=== PATIENT | female | born 1995 | race Caucasian/White ===

== ENCOUNTER 2016-08-03 15:17 | Emergency (ER) | payer OTHER ==
[~2016-08-03] VITALS: Ht 157.5 cm; Wt 80.6 kg
[~2016-08-03 15:17] MED LIST: PREN1TAB51 PO
[2016-08-03 15:28] VITALS: TEMP 37; Ht 157.5 cm; Wt 80.6 kg
--- NOTE | 2016-08-03 16:28 | EMERGENCY ROOM VISIT NOTE ---
History First contact with patient: 16:06 Chief Complaint: TACHYCARDIA Stated Complaint: HEART IS RACING-20 WKS. Nursing Triage Summary: pt reports tachycardia started 2 hours ago normally gets better on own not getting better. longest ever lasted. pt is 20 weeks . called bagger meat told to come to ed History of Present Illness The patient is a 21 year old female who presents to the Emergency Room via private vehicle with complaints of "heart is racing, 20 weeks ". Patient states she has a history of tachycardia. She states that earlier today , approximately 2 hours prior to arrival repeat was 146 bpm, and was not going away. She states that it briefly slow down to 128 and then back up to 142 bpm. She states then slow down again, she felt tired, lightheaded and developed some shortness of breath. She does have a history of tachycardia, was on atenolol for PVCs, and had an ablation performed by Dr. day in [place]. She follows with Dr. Brandt, and that she called their office earlier today who stated that she should come in for evaluation. She notes that the tachycardia develop she was sitting on the couch, and not with exertion or activity. She is concerned because she's not had a run of tachycardia for this duration of time. The patient states that she have a tachycardia before , but always stopped on its own. She feels the baby has been active as usual. She denies any abdominal pain, vaginal bleeding, cramping, vaginal discharge other than usual, nausea or vomiting. She is experiencing slight chest discomfort with the tachycardia. Review of Systems A complete 10-point Review of Systems was discussed with the patient, with pertinent positives and negatives listed in the History of Present Illness. All remaining Review of Systems questions can be considered negative unless otherwise specified. Past Medical/Surgical History Medical Problems: (1) ASTHMA, UNSPECIFIED (2) delivery delivered (3) DEPRESSIVE DISORDER NEC Family History Diabetes mellitus FH: cancer FH: heart disease FH: lung disease FHx: Crohn's disease Hypertension Social History Smoking Status: Never Smoker Alcohol Use: none Marital Status: in relationship Housing Status: lives with significant other Occupation Status: student Current/Historical Medications Scheduled Vit W/ Ferrous Fumara (Pnv Plus Multivi), 1 TAB PO DAILY Allergies Coded Allergies: No Known Allergies (Unverified , nka, 08/03/16) Physical Exam Vital Signs Date Time Temp Pulse Resp B/P Pulse Ox O2 Delivery O2 Flow Rate FiO2 08/03/16 17:54 78 18 111/67 100 08/03/16 17:53 78 20 111/67 100 Room Air 08/03/16 16:48 97 Room Air 08/03/16 16:47 97 Room Air 08/03/16 16:26 98 08/03/16 15:28 37.0 126 18 131/79 100 Room Air Physical Exam VITAL SIGNS - Vital signs and nursing notes were reviewed. Patient is afebrile , normotensive, tachycardic at a rate of 126 bpm, and is saturating well on room air 100%. Her respiratory rate is unlabored at 18. She communicates well with full sentences. GENERAL -21-year-old female appearing her stated age who is in no acute distress. Communicates well with provider and answers questions appropriately. SKIN - Without rashes. No petechial rashes. HEAD - NC/AT. EYES - PERRL with EOMI bilaterally. Sclera anicteric. Palpebral conjunctiva pink and moist with no injection noted. EARS - No deformities of external structures noted on gross examination bilaterally. No pain elicited with palpation of the tragus bilaterally. External auditory canals without discharge or otorrhea. Tympanic membranes pearly miguel without retraction or bulging. No fluid or purulent material visualized behind the TM. Handle of malleus, umbo, cone of light, pars tensa/ flaccid all easily visualized. NOSE - Midline and without cyanosis. No epistaxis or purulent drainage noted. Septum midline without deviation or septal hematoma noted. MOUTH/OROPHARYNX - Without perioral cyanosis. Buccal mucosa pink and moist and without leukoplakia. Tongue midline with equal elevation of palate bilaterally. No tonsillar hypertrophy, erythema, or exudates noted. Good dentition noted. NECK - Neck with FROM. Supple to palpation. No lymphadenopathy noted. No nuchal rigidity. LUNGS - Chest wall symmetric without accessory muscle use, intercostals retractions, or central cyanosis. Normal vesicular breath sounds CTA B/L. No wheezes, rales, or rhonchi appreciated. CARDIAC - RRR with S1/S2. No murmur, rubs, or gallops appreciated. ABDOMEN - Abdominal contour without pulsations or visible masses other than usual for gestation. BS normoactive all four quadrants. No tenderness, palpable masses, hepatosplenomegaly, or ascites noted. EXTREMITIES - No clubbing or peripheral cyanosis. No pretibial edema present. + 5/5 strength noted in UE/LE bilaterally. NEUROLOGIC - Cranial nerves II through XII grossly intact. Sensory intact to light touch throughout. PSYCH - A&Ox3 and cooperates fully with examiner. Pt is very pleasant and interacts well with examiner. Medical Decision & Procedures Laboratory Results 08/03/16 16:49 Red Blood Count 3.90, Mean Corpuscular Volume 87.7, Mean Corpuscular Hemoglobin 29.7, Mean Corpuscular Hemoglobin Concent 33.9, Mean Platelet Volume 10.1, Neutrophils (%) (Auto) 71.5, Lymphocytes (%) (Auto) 20.4, Monocytes (%) (Auto) 6.6, Eosinophils (%) (Auto) 0.9, Basophils (%) (Auto) 0.1, Neutrophils # (Auto) 7.40, Lymphocytes # (Auto) 2.11, Monocytes # (Auto) 0.68, Eosinophils # (Auto) 0.09, Basophils # (Auto) 0.01 08/03/16 16:49 Test 08/03/16 16:49 08/03/16 16:57 08/03/16 17:03 White Blood Count 10.34 K/uL (4.8-10.8) Red Blood Count 3.90 M/uL (4.2-5.4) Hemoglobin 11.6 g/dL (12.0-16.0) Hematocrit 34.2 % (37-47) Mean Corpuscular Volume 87.7 fL (80-100) Mean Corpuscular Hemoglobin 29.7 pg (25-34) Mean Corpuscular Hemoglobin Concent 33.9 g/dl (32-36) Platelet Count 259 K/uL (130-400) Mean Platelet Volume 10.1 fL (7.4-10.4) Neutrophils (%) (Auto) 71.5 % Lymphocytes (%) (Auto) 20.4 % Monocytes (%) (Auto) 6.6 % Eosinophils (%) (Auto) 0.9 % Basophils (%) (Auto) 0.1 % Neutrophils # (Auto) 7.40 K/uL (1.4-6.5) Lymphocytes # (Auto) 2.11 K/uL (1.2-3.4) Monocytes # (Auto) 0.68 K/uL (0.11-0.59) Eosinophils # (Auto) 0.09 K/uL (0-0.5) Basophils # (Auto) 0.01 K/uL (0-0.2) RDW Standard Deviation 44.4 fL (36.4-46.3) RDW Coefficient of Variation 14.1 % (11.5-14.5) Immature Granulocyte % (Auto) 0.5 % Immature Granulocyte # (Auto) 0.05 K/uL (0.00-0.02) Prothrombin Time 10.3 SECONDS (9.0-12.0) Prothromb Time International Ratio 1.0 (0.9-1.1) Activated Partial Thromboplast Time 25.4 SECONDS (21.0-31.0) Partial Thromboplastin Ratio 1.0 Anion Gap 10.0 mmol/L (3-11) Est Creatinine Clear Calc Drug Dose 159.2 ml/min Estimated GFR () > 150.0 Estimated GFR (Non- 134.1 BUN/Creatinine Ratio 11.9 (10-20) Calcium Level 8.7 mg/dl (8.5-10.1) Magnesium Level 1.8 mg/dl (1.8-2.4) Total Bilirubin 0.2 mg/dl (0.2-1) Aspartate Amino Transf (AST/SGOT) 8 U/L (15-37) Alanine Aminotransferase (ALT/SGPT) 13 U/L (12-78) Alkaline Phosphatase 91 U/L (45-117) Total Creatine Kinase 30 U/L (26-192) Creatine Kinase MB < 0.5 ng/ml (0.5-3.6) Creatine Kinase MB Ratio (0-3.0) Total Protein 6.5 gm/dl (6.4-8.2) Albumin 2.6 gm/dl (3.4-5.0) Globulin 3.9 gm/dl (2.5-4.0) Albumin/Globulin Ratio 0.7 (0.9-2) Thyroid Stimulating Hormone (TSH) 1.940 uIu/ml (0.300-4.500) Bedside Troponin I 0.000 ng/ml (0-0.045) Urine Color YELLOW Urine Appearance CLEAR (CLEAR) Urine pH 7.5 (4.5-7.5) Urine Specific [place] 1.009 (1.000-1.030) Urine Protein NEG (NEG) Urine Glucose (UA) 1+ (NEG) Urine Ketones NEG (NEG) Urine Occult Blood NEG (NEG) Urine Nitrite NEG (NEG) Urine Bilirubin NEG (NEG) Urine Urobilinogen NEG (NEG) Urine Leukocyte Esterase NEG (NEG) Medical Decision Patient was seen and evaluated as above. After obtaining a thorough history and physical examination the above workup was initiated. The patient upon presentation to the emergency department was tachycardic at a rate of 126 bpm. There was minimal chest discomfort. Stat EKG was obtained and revealed normal sinus rhythm, rate of 97 bpm. No ectopy or ischemic change was noted. When compared with previous EKG of 05/23/2016 PVCs are no longer present, and the ventricular rate has increased by 35 bpm. There is no evidence of further ectopy or ischemic change. Lab results reveal no leukocytosis, slight anemia noted. Coagulation studies were within normal limits. Creatinine was low at 0.55, no evidence of kidney failure or liver failure. TSH was within normal limits. Point care troponin was within normal limits. Urine was unremarkable, other than 1+ glucose. heart tones as performed by the nurse were within normal limits. Patient was educated upon these findings. She was reevaluated many times throughout her stay, and was noted to have a heart rate in the 70s and 80s. She appeared clinically well, and I discussed the potential chance for both pulmonary embolism, however I do not suspect such as her vital signs have returned normal, she is saturating well. They were educated upon different carin could be ordered to evaluate for this, however were cautioned based upon the adverse effects that may happen to the fetus. Through thorough decision-making with the patient and myself, it was decided to not pursue any workup for pulmonary embolism. I do believe this is reasonable. Patient appears stable, and is ready for discharge. She was instructed to follow-up with her family doctor and bagger meat regarding today's visit. She was educated upon worrisome symptoms in which to return, had questions answered prior to discharge, and was discharged home in good condition. In the evaluation and treatment of this patient the following differential diagnoses were entertained: Tachycardia, SVT, CO, PE, among others. The patient 's body appeared to self regulate, and has brought the ventricular rate to a normal rate. No medicinal intervention was necessary. Impression Primary Impression: Tachycardia Additional Impression: Anemia Departure Information Dispostion Home / Self-Care Condition GOOD Referrals Will Mckeon III, M.D. (PCP) Patient Instructions My [facility] Additional Instructions You were seen in the emergency department for tachycardia. EKG and cardiac chemicals were normal. As we discussed we have decided not to obtain a CT scan of your chest, we believe that the risk outweighs the benefit. Here in the emergency Department your heart rate returned to normal. It is recommended you have basic labs repeated with your family doctor. Please call your bagger meat, VENEER SUPERVISOR and family doctor first thing tomorrow morning to schedule follow-up and to let them know that you were seen in the emergency department. Please return to the emergency department with any return of these episodes, or new/concerning symptoms. Thank you for your time. Problem Qualifiers
[2016-08-03 16:48] VITALS: O2SAT 97
[2016-08-03 16:58] LABS: BASO % 0.1 %; BASO ABS # 0.01 K/uL (0-0.2); COMPLETE YES; EOS % 0.9 %; HEMATOCRIT 34.2 % (37-47); IG% 0.5 %; LYMPH % 20.4 %; LYMPH ABS # 2.11 K/uL (1.2-3.4); MEAN CELL VOLUME 87.7 fL (80-100); MEAN CORPUSCULAR HEMOGLOBIN 29.7 pg (25-34); MEAN CORPUSCULAR HGB CONC 33.9 g/dl (32-36); MEAN PLATELET VOLUME 10.1 fL (7.4-10.4); MONO % 6.6 %; NEUT % 71.5 %; PLATELET COUNT 259 K/uL (130-400); WHITE BLOOD COUNT 10.34 K/uL (4.8-10.8)
[2016-08-03 17:12] LABS: PROTHROMBIN TIME (PATIENT) 10.3 SECONDS (9.0-12.0)
[2016-08-03 17:13] LABS: CHLORIDE 106 mmol/L (98-107); POTASSIUM 3.9 mmol/L (3.5-5.1); SODIUM 139 mmol/L (136-145)
[2016-08-03 17:19] LABS: URINE APPEARANCE CLEAR (CLEAR); URINE BILIRUBIN NEG (NEG); URINE COLOR YELLOW; URINE NITRITE NEG (NEG); URINE PH 7.5 (4.5-7.5); URINE SPECIFIC GRAVITY 1.009 (1.000-1.030); UROBILINOGEN NEG (NEG); ZZUR CULT IF INDIC CLEAN CATCH NO
[2016-08-03 17:19] LABS: ALT/SGPT 13 U/L (12-78); AST/SGOT 8 U/L (15-37); BLOOD UREA NITROGEN 7 mg/dl (7-18); BUN/CREATININE RATIO 11.9 (10-20); CALCIUM 8.7 mg/dl (8.5-10.1); CARBON DIOXIDE 23 mmol/L (21-32); CREATININE 0.55 mg/dl (0.60-1.20); GLUCOSE 81 mg/dl (70-99); MAGNESIUM 1.8 mg/dl (1.8-2.4)
[2016-08-03 17:23] LABS: MANUAL MICROSCOPIC REQUIRED? NO; REVIEW REQ? NO
[2016-08-03 17:30] LABS: ALB/GLOB RATIO 0.7 (0.9-2); ALKALINE PHOSPHATASE 91 U/L (45-117)
[2016-08-03 17:54] VITALS: BP 111/67; PULSE 78; O2SAT 100
[2016-11-16] MEDS ORDERED: ZNTT/150 PO (18:52)
[2016-11-16] MEDS ORDERED: FERR1TAB23 PO (18:52)
[2016-11-26] MEDS ORDERED: OXYC-57 PO (21:31)
[2016-11-26] MEDS ORDERED: MTR600X PO (21:31)
[2016-11-27] MEDS ORDERED: ZVR400 PO (10:27)
== END 2016-08-03 17:57 | disposition home or self-care (01) ==
LOC: C.EDB 15:20 → C.EDC 17:57
DX: R00.0 Tachycardia, unspecified (principal); D64.9 Anemia, unspecified; J45.909 Unspecified asthma, uncomplicated; F32.9 Major depressive disorder, single episode, unspecified; Z83.3 Family history of diabetes mellitus; Z82.49 Family history of ischemic heart disease and other diseases of the circulatory system; Z83.6 Family history of other diseases of the respiratory system; Z83.79 Family history of other diseases of the digestive system; Z33.1 Pregnant state, incidental

== ENCOUNTER 2016-08-28 16:29 | Outpatient (CLI) | payer OTHER ==
[2016-11-16] MEDS ORDERED: FERR1TAB23 PO (18:52)
[2016-11-16] MEDS ORDERED: ZNTT/150 PO (18:52)
== END 2016-08-28 17:20 | disposition home or self-care (01) ==
LOC: C.LD 16:29 → C.OPB 16:29
PROVIDERS: ATTEND Obstetrics & Gynecology
DX: O36.8130 Decreased fetal movements, third trimester, not applicable or unspecified (principal); Z3A.24 24 weeks gestation of pregnancy

== ENCOUNTER 2016-09-20 21:48 | Outpatient (CLI) | payer OTHER ==
[~2016-09-20] VITALS: Ht 157.5 cm; Wt 85.0 kg
[2016-09-20 22:32] VITALS: Ht 157.5 cm; Wt 85.0 kg
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
--- NOTE | 2016-09-20 23:56 | Discharge Instructions ---
Discharge Instructions Date of Service Sep 20, 2016. Admission Reason for Admission: Abdominal Pain Discharge Discharge Diagnosis / Problem: Discharge Goals Goal(s): Continuing OB care Activity Recommendations Activity Limitations: as noted below ACTIVITY RECOMMENDATIONS: See Labor Sheet. SPECIAL CARE INSTRUCTIONS: Call Doctor if: * Regular contractions every 5 minutes or greater than contractions in one hour. * Bleeding * Water breaks or is leaking * Decreased movement * Fever >100.4 degrees F * Pain not relieved by routine measures or pain medication ordered. FOLLOW UP VISIT: Return to Labor and Delivery on for /call for appointment time . Follow-up Visit with: When: . Current Hospital Diet Patient's current hospital diet: Discharge Diet Recommended Diet: Regular Diet Pending Studies Studies pending at discharge: no Medical Emergencies . Who to Call and When: Medical Emergencies: If at any time you feel your situation is an emergency, please call 911 immediately. . Non-Emergent Contact Non-Emergency issues call your: Specialist . . "Provider Documentation" section prepared by Sergio Shook. VTE Core Measure Inpt VTE Proph given/why not?: Treatment not indicated
[2016-11-16] MEDS ORDERED: ZNTT/150 PO (18:52)
[2016-11-16] MEDS ORDERED: FERR1TAB23 PO (18:52)
[2016-11-26] MEDS ORDERED: OXYC-57 PO (21:31)
[2016-11-26] MEDS ORDERED: MTR600X PO (21:31)
[2016-11-27] MEDS ORDERED: ZVR400 PO (10:27)
== END 2016-09-21 00:04 | disposition home or self-care (01) ==
LOC: C.OPB 21:48 → C.LD 21:48 → C.OPB 09-21 00:04
PROVIDERS: ATTEND Obstetrics & Gynecology
DX: O99.89 Other specified diseases and conditions complicating pregnancy, childbirth and the puerperium (principal); R10.9 Unspecified abdominal pain; Z3A.27 27 weeks gestation of pregnancy; W51.XXXA Accidental striking against or bumped into by another person, initial encounter

== ENCOUNTER 2016-09-28 22:37 | Outpatient (CLI) | payer OTHER ==
[~2016-09-28] VITALS: Ht 157.5 cm; Wt 86.4 kg
--- NOTE | 2016-09-29 00:02 | Progress Note ---
Progress Note Date of Service Sep 28, 2016. Progress Note Pt is a 28 week gestation the Ff complaints. 1) Dec. FM, 2) Brownish tinge disch on wiping after urination. 3) Nausea she has Zofran but has not taking med today On arrival to L&D she began to experience increase mvt NST is CAT1 VE; close/no blood on exam glove Pt is disch home with instructions including taking her Zofran
--- NOTE | 2016-09-29 00:04 | Discharge Instructions ---
Discharge Instructions Date of Service Sep 29, 2016. Admission Reason for Admission: Bleeding, Decreased Movement Discharge Discharge Diagnosis / Problem: at 28 weeks Discharge Goals Goal(s): Continuing OB care Activity Recommendations Activity Limitations: as noted below ACTIVITY RECOMMENDATIONS: See Labor Sheet. SPECIAL CARE INSTRUCTIONS: Call Doctor if: * Regular contractions every 5 minutes or greater than contractions in one hour. * Bleeding * Water breaks or is leaking * Decreased movement * Fever >100.4 degrees F * Pain not relieved by routine measures or pain medication ordered. FOLLOW UP VISIT: Return to Labor and Delivery on for /call for appointment time . Follow-up Visit with: When: . Current Hospital Diet Patient's current hospital diet: Discharge Diet Recommended Diet: Regular Diet Pending Studies Studies pending at discharge: no Medical Emergencies . Who to Call and When: Medical Emergencies: If at any time you feel your situation is an emergency, please call 911 immediately. . Non-Emergent Contact Non-Emergency issues call your: Specialist . . "Provider Documentation" section prepared by Sergio Shook. . VTE Core Measure Inpt VTE Proph given/why not?: Treatment not indicated
[2016-09-29 00:49] VITALS: Ht 157.5 cm; Wt 86.4 kg
[2016-11-16] MEDS ORDERED: ZNTT/150 PO (18:52)
[2016-11-16] MEDS ORDERED: FERR1TAB23 PO (18:52)
[2016-11-26] MEDS ORDERED: OXYC-57 PO (21:31)
[2016-11-26] MEDS ORDERED: MTR600X PO (21:31)
[2016-11-27] MEDS ORDERED: ZVR400 PO (10:27)
== END 2016-09-28 23:45 | disposition home or self-care (01) ==
LOC: C.LD 22:37 → C.OPB 22:37
PROVIDERS: ATTEND Obstetrics & Gynecology
DX: O36.8130 Decreased fetal movements, third trimester, not applicable or unspecified (principal); Z3A.28 28 weeks gestation of pregnancy

== ENCOUNTER 2016-10-23 00:38 | Outpatient (CLI) | payer OTHER ==
[~2016-10-23] VITALS: Ht 157.5 cm; Wt 87.5 kg
[2016-10-23 01:42] VITALS: Ht 157.5 cm; Wt 87.5 kg
--- NOTE | 2016-10-26 10:54 | EDITING REQUIRED CODING QUERY ---
DIAGNOSIS NEEDED To promote full compliance with coding requirements relating to patient care, physician participation is requested in all cases of lang path therapist uncertainty. Please assist us with the question(s) below: Coding Question: The patient received care in labor and delivery on 10/23/16 as noted within the record. Please document the diagnosis that is being addressed by the medication/treatment. Provider Response: DIAGNOSIS: early labor Thank you for your assistance, Zahra Juarez - Firer [employer]
[2016-11-16] MEDS ORDERED: FERR1TAB23 PO (18:52)
[2016-11-16] MEDS ORDERED: ZNTT/150 PO (18:52)
[2016-11-26] MEDS ORDERED: OXYC-57 PO (21:31)
[2016-11-26] MEDS ORDERED: MTR600X PO (21:31)
[2016-11-27] MEDS ORDERED: ZVR400 PO (10:27)
== END 2016-10-23 01:59 | disposition home or self-care (01) ==
LOC: C.OPB 00:38 → C.LD 00:39 → C.OPB 01:59
PROVIDERS: ATTEND Obstetrics & Gynecology
DX: O60.03 Preterm labor without delivery, third trimester (principal); Z3A.32 32 weeks gestation of pregnancy

== ENCOUNTER 2016-11-21 03:16 | Outpatient (CLI) | payer OTHER ==
[~2016-11-21] VITALS: Ht 157.5 cm; Wt 90.7 kg
[~2016-11-21 03:16] MED LIST changes: +FERR1TAB23 PO; +ZNTT/150 PO
[2016-11-21 03:47] VITALS: Ht 157.5 cm; Wt 90.7 kg
[2016-11-21] MEDS ORDERED: LACTATED RINGER'S 1000ML 1,000 ML IV SCH (03:58)
[2016-11-21] MEDS ORDERED: LACTATED RINGER'S 1000ML 1,000 ML IV ONE (03:58)
[2016-11-21] MEDS ORDERED: BETAMETH SOD PHOS/ACETATE IA 6 MG/ML IM ONE (08:15)
--- NOTE | 2016-11-21 08:40 | Discharge Instructions ---
Discharge Instructions Date of Service Nov 21, 2016. Admission Reason for Admission: Check Labor Discharge Discharge Diagnosis / Problem: Cholestasis of , IUP 36.1 week Discharge Goals Goal(s): Continuing OB care Activity Recommendations Activity Limitations: per Instructions/Follow-up section . Instructions / Follow-Up Instructions / Follow-Up SPECIAL CARE INSTRUCTIONS: Call Doctor if: * Regular contractions every 5 minutes or greater * Bleeding * Water breaks or is leaking * Decreased movement * Fever >100.4 degrees F * Pain not relieved by routine measures or pain medication ordered. FOLLOW UP VISIT: [facility] Visit with:[facility] When:Tomorrow 11/21/16 0900 AM Current Hospital Diet Patient's current hospital diet: Regular OB Diet Discharge Diet Recommended Diet: Regular OB Diet Pending Studies Studies pending at discharge: no Medical Emergencies . Who to Call and When: Medical Emergencies: If at any time you feel your situation is an emergency, please call 911 immediately. . Non-Emergent Contact Non-Emergency issues call your: Primary Care Provider, Igniter Assembler . . "Provider Documentation" section prepared by Shine Dacosta. . VTE Core Measure Inpt VTE Proph given/why not?: Treatment not indicated
[2016-11-26] MEDS ORDERED: OXYC-57 PO (21:31)
[2016-11-26] MEDS ORDERED: MTR600X PO (21:31)
[2016-11-27] MEDS ORDERED: ZVR400 PO (10:27)
== END 2016-11-21 09:05 | disposition home or self-care (01) ==
LOC: C.OPB 03:16 → C.LD 03:16 → C.OPB 09:05
PROVIDERS: ATTEND Obstetrics & Gynecology
DX: O26.893 Other specified pregnancy related conditions, third trimester (principal); K83.1 Obstruction of bile duct; Z3A.36 36 weeks gestation of pregnancy

== ENCOUNTER 2016-11-24 06:56 | Inpatient (IN) | payer OTHER ==
[~2016-11-24] VITALS: Ht 157.5 cm; Wt 90.4 kg
[2016-11-24] VITALS (11 sets, daily range): BP systolic 106–118; BP diastolic 69–77; PULSE 58–71; TEMP 36.5–37; O2SAT 96–100; Ht 157.5 cm; Wt 90.4 kg
[~2016-11-24 06:56] MED LIST changes: +CEFAZOLIN IV 2,000 MG in DEXTROSE 5% 50ML IV SCH; +CITRIC ACID/SODIUM CITRATE 15 ML UDC PO SCH; +LACTATED RINGER'S 1000ML 1,000 ML IV SCH
--- NOTE | 2016-11-24 08:13 | History & Physical Bridge Note ---
H&P Re-Evaluation Bridge Note: I have examined the patient, reviewed the History & Physical and in the interval since the performance of the History & Physical I have noted the following changes of clinical significance: No changes noted
[2016-11-24 08:26] LABS: BASO % 0.2 %; BASO ABS # 0.02 K/uL (0-0.2); COMPLETE YES; EOS % 1.3 %; HEMATOCRIT 30.9 % (37-47); IG% 0.8 %; LYMPH % 32.2 %; LYMPH ABS # 2.82 K/uL (1.2-3.4); MEAN CELL VOLUME 80.3 fL (80-100); MEAN CORPUSCULAR HEMOGLOBIN 24.9 pg (25-34); MEAN CORPUSCULAR HGB CONC 31.1 g/dl (32-36); MEAN PLATELET VOLUME 10.2 fL (7.4-10.4); MONO % 10.8 %; NEUT % 54.7 %; PLATELET COUNT 258 K/uL (130-400); RED BLOOD COUNT 3.85 M/uL (4.2-5.4); WHITE BLOOD COUNT 8.76 K/uL (4.8-10.8)
[2016-11-24] MEDS ORDERED: OXYTOCIN INJ 10 UNITS/ML VIAL ONE (08:29)
[2016-11-24] MEDS ORDERED: MoRPHine SULFATE PF 1 MG/ML 10 ML AMP/VIAL ONE (08:29)
[2016-11-24] MEDS ORDERED: FENTANYL CITRATE INJ 50 MCG/1 ML 2 ML VIAL ONE (08:29)
[2016-11-24] MEDS: LACTATED RINGER'S 1000ML 1,000 ML IV SCH ×2 (09:00→09:03)
[2016-11-24] MEDS ORDERED: EpHEDrine SULFATE INJ 50 MG/ML AMP IV PRN ×2 (09:15→12:45)
[2016-11-24] MEDS ORDERED: ATROPINE SULFATE 0.1 MG/ML 5ML SYR IV PRN (09:15)
[2016-11-24] MEDS ORDERED: FENTANYL CITRATE INJ 50 MCG/1 ML 2 ML VIAL IV PRN (09:15)
[2016-11-24] MEDS ORDERED: ONDANSETRON INJ 2 MG/ML 2 ML VIAL IV PRN ×2 (09:15→12:45)
[2016-11-24] MEDS ORDERED: LACTATED RINGER'S 1000ML 1,000 ML IV SCH (11:09)
[2016-11-24] MEDS ORDERED: HYDROCORTISONE ACETATE 25 MG SUPP PR PRN (11:15)
[2016-11-24] MEDS ORDERED: BENZOCAINE 20% AER SPR 82.5 GM CAN EXT PRN (11:15)
[2016-11-24] MEDS ORDERED: SENNA 8.6 MG TAB PO PRN (11:15)
[2016-11-24] MEDS ORDERED: SUPERCREAM 0.870 % 15GM JAR EXT PRN (11:15)
[2016-11-24] MEDS ORDERED: MAGNESIUM HYDROXIDE SUSP 30 ML UDC PO PRN (11:15)
[2016-11-24] MEDS ORDERED: LANOLIN OINT EXT PRN ×2 (11:15)
[2016-11-24] MEDS ORDERED: DIPHTHERIA/TETANUS/PERTUSSIS 0.5 ML SYR/VIAL IM. ONE (11:15)
--- NOTE | 2016-11-24 11:16 | [facility] Post Operative Brief Note ---
Immediate Operative Summary Operative Date Nov 24, 2016. Pre-Operative Diagnosis INTRA-UTERINE AT 36.4 WEEKS. HISTORY OF CAESAREAN DELIVERY, REQUESTS REPEAT CAESAREAN SECTION AND DESIRES SURGICAL STERILIZATION. Post-Operative Diagnosis ABOVE Procedure(s) Performed REPEAT CAESAREAN SECTION - LOW TRANSVERSE INCISION BILATERAL TUBAL LIGATION Surgeon DR. WITT Pea Viner Mechanic Surgeon(s) DR. REDMAN Estimated Blood Loss 700 Findings Patient delivered a viable female in the vertex position via repeat section. APGARs and weight pending. Please see pediatricians notes for further baby assessment. Cord blood obtained and an intact placenta with a 3 VC delivered manually. Normal uterus and bilateral tubes and ovaries noted. Bilateral tubal ligation was performed via ajit technique. Bilateral tubal segments sent to pathology. Patient tolerated the surgery well and was sent to recovery with stable vital signs. Fluids (cc crystalloids) 1600 Specimens 1. PLACENTA (HOLD) 2. CORD BLOOD (HOLD) 3. SEGMENT OF R FALLOPIAN TUBE (To Pathology) 4. SEGMENT OF L FALLOPIAN TUBE (To Pathology) Drains Alfonso to gravity Anesthesia Spinal Complication(s) None Disposition L&D
--- NOTE | 2016-11-24 12:15 | OPERATIVE REPORT ---
DATE OF OPERATION: 11/24/2016 PREOPERATIVE DIAGNOSES: 1. Intrauterine at 36 weeks and 4 days gestation. 2. History of prior section, requesting repeat section. 3. Cholestasis of . 4. Requesting permanent sterilization. POSTOPERATIVE DIAGNOSES: Same. OPERATIVE PROCEDURE: Repeat low transverse section with bilateral tubal ligation. SURGEON: Dr. Shine Dacosta. INTELLIGENCE INTERN: Dr. Sewell. ANESTHESIA: Spinal. ESTIMATED BLOOD LOSS: 700 mL. IV FLUIDS: 1600 mL crystalloids. URINE OUTPUT: 200 mL clear yellow urine. SPECIMENS: Placenta, cord blood and left and right fallopian tube segments sent to pathology. DRAINS: Alfonso to gravity. COMPLICATIONS: None. DISPOSITION: To labor and delivery. OPERATIVE FINDINGS: The patient delivered a viable female infant in the vertex position via repeat section. Apgars and weight are pending. Please see track broom operator's notes for further baby assessment. Cord blood was obtained and intact placenta with a 3-vessel cord was delivered manually. Normal uterus and bilateral tubes and ovaries were noted. Bilateral tubal ligation was performed via Mansfield technique. Bilateral tubal segments sent to pathology. The patient tolerated the surgery well and was sent to recovery with stable vital signs. OPERATIVE PROCEDURE IN DETAIL: The patient was taken to the operating room, where spinal anesthesia was administered. The patient was immediately placed in the dorsal supine position with a left lateral tilt and was prepped and draped in a manner appropriate for the procedure. Once anesthesia was found to be adequate, a Pfannenstiel skin incision was made over the previous surgical scar and was carried down through to a layer of the rectus fascia. The fascia was nicked in the midline and extended bilaterally with curved Omalley scissors. The superior aspect of the fascial incision was grasped with Sunil clamps, elevated, and the rectus muscles were dissected off with the use of the electrocautery and curved Omalley scissors. Likewise, the inferior aspect of the fascial incision was grasped with Sunil clamps, elevated, and the rectus muscles were dissected off with the use of the curved Omalley scissors. The rectus muscles were in midline. Peritoneum was entered bluntly and extended cephalocaudally with gentle traction. Bladder blade was then placed within the abdomen. The vesicouterine peritoneum was identified and a bladder flap was created with Metzenbaum scissors and digital traction. The bladder flap was reincorporated beneath the Roly blade. A transverse incision was then made on the uterus and extended bilaterally with digital traction. The membranes were then ruptured noting meconium stained amniotic fluid. The baby's head was delivered through the incision along with the rest of the body was delivered. The baby was bulb suctioned. Cord was clamped x2 and cut. The baby was immediately handed to an awaiting track broom operator for further evaluation and management. Please see their notes for further baby assessment. Cord blood was then obtained and intact placenta with 3-vessel cord was delivered manually through the incision. The uterus was then exteriorized and wrapped in a moist laparotomy sponge. The uterus was cleared of any trailing membranes and debris with the laparotomy sponge. The uterine incision was then grasped with ring forceps at 4 quadrants and was closed with 0 Vicryl suture in continuous locking fashion. A second layer of 0 Vicryl suture was used in imbricating fashion to ensure hemostasis. Any residual bleeding was suture ligated with 0 Vicryl suture in a [id number] interrupted fashion. Excellent hemostasis was noted at the incision. Attention was then directed towards the right fallopian tube, which was followed out to its fimbriated end, grasped at the midpoint with the Court clamp and was suture ligated with 0 chromic suture in a Alejandrina technique fashion. The tubal segment was then removed with the Metzenbaum scissors. The tubal stumps were cauterized with electrocautery. The same was done on the left side. The left fallopian tube was followed out to its fimbriated end and grasped at that midpoint with the [place] clamp and was double suture ligated with 0 chromic suture via Alejandrina technique. Tubal segment was then removed with Metzenbaum scissors and sent to pathology. The tubal stumps were then cauterized. Excellent hemostasis was noted bilaterally. The uterus was then placed back within its normal anatomic position within the abdomen. Inspection of the incision was noted to be hemostatic. Bilateral tubal ligations were also hemostatic. The abdomen was then irrigated with warm saline solution. All instruments were then removed from the abdomen. The peritoneum was grasped with Brandy clamps and was closed with 2-0 Vicryl suture in continuous running fashion. Rectus muscles were reapproximated with 0 Vicryl suture in a [id number] interrupted fashion. Fascia was then closed with 0 Vicryl suture in continuous running fashion. The skin was then closed with sandeep. Excellent hemostasis was noted through all tissue layers. The patient tolerated the procedure well and was sent to recovery with stable vital signs. I attest to the content of the Intraoperative Record and any orders documented therein. Any exception s are noted below.
[2016-11-24] MEDS ORDERED: NALOXONE HCL INJ 0.08 MG in SYRINGE 1.8 ML IV PRN (12:33)
[2016-11-24] MEDS ORDERED: LACTATED RINGER'S 1000ML 500 ML IV PRN (12:33)
[2016-11-24] MEDS ORDERED: SODIUM CHLORIDE 0.9% 1000ML 1,000 ML IV PRN (12:33)
[2016-11-24] MEDS ORDERED: NALOXONE HCL INJ 1 MG in SODIUM CHLORIDE 0.9% 1000ML 1,000 ML IV PRN (12:33)
--- NOTE | 2016-11-24 12:35 | Anesthesiology Progress Note ---
Anesthesia Post Op Note Date & Time Nov 24, 2016 at 12:35 Notes Mental Status: alert / awake / arousable, participated in evaluation Pt Amnestic to Procedure: Yes Nausea / Vomiting: adequately controlled Pain: adequately controlled Airway Patency, RR, SpO2: stable & adequate BP & HR: stable & adequate Hydration State: stable & adequate Neuraxial Anesthesia: was administered, sensory block is resolving Anesthetic Complications: no major complications apparent
[2016-11-24] MEDS ORDERED: MEPERIDINE HCL 25 MG/ML CARP IV PRN (12:45)
[2016-11-24] MEDS ORDERED: MoRPHine SULFATE PF 1 MG/ML 10 ML AMP/VIAL EPI PRN (12:45)
[2016-11-24] MEDS ORDERED: DiphenhydrAMINE HCL 50 MG/ML VIAL IV PRN (12:45)
[2016-11-24] MEDS ORDERED: NALBUPHINE HCL INJ 10 MG/ML AMP IV PRN (12:45)
[2016-11-24] MEDS ORDERED: NO NARCOTICS OR SEDATIVES SCH (12:45)
[2016-11-24] MEDS ORDERED: NALOXONE HCL 0.4 MG/1 ML VIAL/CARP IV PRN (12:45)
[2016-11-24] MEDS: OXYTOCIN INJ 30 UNITS in LACTATED RINGER'S 1000ML 1,000 ML IV SCH ×2 (12:48→20:17)
[2016-11-24 12:54] LABS: HEMATOCRIT 30.7 % (37-47)
[2016-11-24] MEDS: KETOROLAC TROMETHAMINE 30 MG/ML VIAL IV. PRN ×2 (13:16→23:42)
[2016-11-24] MEDS: SIMETHICONE 80 MG CHEW PO SCH ×2 (17:48→20:03)
[2016-11-24] MEDS: DOCUSATE SODIUM 100 MG CAP PO SCH (20:03)
[2016-11-25] VITALS (8 sets, daily range): BP systolic 97–118; BP diastolic 60–74; PULSE 58–78; TEMP 36.3–37; O2SAT 95–98
[2016-11-25] MEDS ORDERED: ONDANSETRON INJ 2 MG/ML 2 ML VIAL IV PRN (04:00)
[2016-11-25] MEDS ORDERED: KETOROLAC TROMETHAMINE 30 MG/ML VIAL IV. PRN (04:00)
[2016-11-25] MEDS ORDERED: OXYCODONE/ACETAMINOPHEN 5-325 TAB PO PRN (04:00)
[2016-11-25] MEDS ORDERED: DC INTRASPINAL MORPHINE ONE (04:00)
[2016-11-25 06:40] LABS: BASO % 0.2 %; BASO ABS # 0.02 K/uL (0-0.2); COMPLETE YES; HEMATOCRIT 31.4 % (37-47); IG% 0.3 %; LYMPH % 16.8 %; LYMPH ABS # 1.93 K/uL (1.2-3.4); MEAN CELL VOLUME 78.7 fL (80-100); MEAN CORPUSCULAR HEMOGLOBIN 24.8 pg (25-34); MEAN CORPUSCULAR HGB CONC 31.5 g/dl (32-36); MONO % 10.1 %; NEUT % 71.6 %; PLATELET COUNT 225 K/uL (130-400); RED BLOOD COUNT 3.99 M/uL (4.2-5.4); WHITE BLOOD COUNT 11.52 K/uL (4.8-10.8)
[2016-11-25] MEDS: OXYCODONE/ACETAMINOPHEN 5-325 TAB PO PRN ×3 (07:13→20:41)
[2016-11-25] MEDS: IBUPROFEN 600 MG TAB PO PRN ×3 (07:13→20:40)
--- NOTE | 2016-11-25 08:35 | Anesthesiology Progress Note ---
Anesthesia Post Op Note Date & Time Nov 25, 2016 at 08:34 Vital Signs Pain Intensity: 6.0 Vital Signs Past 12 Hours Date Time Temp Pulse Resp B/P (MAP) Pulse Ox O2 Delivery O2 Flow Rate FiO2 11/25/16 07:15 98 Room Air 11/25/16 07:15 36.6 60 18 97/60 (72) 98 Room Air 11/25/16 04:40 18 96 11/25/16 04:40 36.9 78 16 101/64 (76) 96 Room Air 11/25/16 03:30 16 96 11/25/16 02:30 16 95 11/25/16 01:30 18 97 11/25/16 00:30 20 98 11/24/16 23:45 37.0 64 18 110/72 (85) 100 Room Air 11/24/16 23:45 18 100 11/24/16 23:45 100 Room Air 11/24/16 23:00 18 96 11/24/16 22:00 16 98 11/24/16 21:00 18 99 Notes Mental Status: alert / awake / arousable, participated in evaluation Pt Amnestic to Procedure: Yes Nausea / Vomiting: adequately controlled Pain: adequately controlled Airway Patency, RR, SpO2: stable & adequate BP & HR: stable & adequate Hydration State: stable & adequate Neuraxial Anesthesia: sensory block resolved Anesthetic Complications: no major complications apparent
[2016-11-25] MEDS: FERROUS SULFATE 325 MG TAB PO SCH (08:45)
[2016-11-25] MEDS: SIMETHICONE 80 MG CHEW PO SCH ×4 (08:45→20:40)
[2016-11-25] MEDS: PRENATAL VITAMIN TAB PO SCH (08:46)
[2016-11-25] MEDS: DOCUSATE SODIUM 100 MG CAP PO SCH ×2 (08:46→20:40)
--- NOTE | 2016-11-25 12:22 | OB/GYN Progress Note ---
PROJECT SCIENTIST Progress Note Date of Service: Nov 25, 2016. Patient is seen and examined. She feels well, no complaints. Pain is under control with oral meds. Ambulating without dizziness Voiding without difficulty Tolerating regular diet with out N&V Flatus neg BM neg Bleeding is minimal No fever/ chills/ CP/ SOB/ N&V/ Leg pain Breast and bottle feeding without problems Last 24 Hours Test 11/24/16 12:47 11/25/16 06:21 Hemoglobin 9.0 g/dL 9.9 g/dL Hematocrit 30.7 % 31.4 % White Blood Count 11.52 K/uL Red Blood Count 3.99 M/uL Mean Corpuscular Volume 78.7 fL Mean Corpuscular Hemoglobin 24.8 pg Mean Corpuscular Hemoglobin Concent 31.5 g/dl Platelet Count 225 K/uL Mean Platelet Volume 10.0 fL Neutrophils (%) (Auto) 71.6 % Lymphocytes (%) (Auto) 16.8 % Monocytes (%) (Auto) 10.1 % Eosinophils (%) (Auto) 1.0 % Basophils (%) (Auto) 0.2 % Neutrophils # (Auto) 8.26 K/uL Lymphocytes # (Auto) 1.93 K/uL Monocytes # (Auto) 1.16 K/uL Eosinophils # (Auto) 0.11 K/uL Basophils # (Auto) 0.02 K/uL RDW Standard Deviation 45.0 fL RDW Coefficient of Variation 15.5 % Immature Granulocyte % (Auto) 0.3 % Immature Granulocyte # (Auto) 0.04 K/uL PE: General: Alert, orientedx3, NAD CVS: S1S2 RRR Lungs; CTAB Abd: soft, NT, fundus firm, below Umbilicus Incision: Clean, dry, intact Perineum intact, Lochia rubra minimal Ext; NT, no edema AP: 21 yo s/p C Section, pod# 1 VSS Afebrile doing well Continue routine postop care Encourage ambulation, PO intake All questions were answered
[2016-11-25] MEDS ORDERED: BISACODYL 5 MG TABEC ONE (20:38)
[2016-11-25] MEDS ORDERED: BISACODYL 5 MG TABEC PO ONE (22:00)
[2016-11-26] MEDS: IBUPROFEN 600 MG TAB PO PRN ×5 (00:37→22:01)
[2016-11-26] MEDS: OXYCODONE/ACETAMINOPHEN 5-325 TAB PO PRN ×6 (00:38→22:01)
[2016-11-26 06:50] LABS: HEMATOCRIT 30.5 % (37-47)
[2016-11-26 07:10] VITALS: BP 126/81; PULSE 64; TEMP 36.8; O2SAT 97
[2016-11-26] MEDS: SIMETHICONE 80 MG CHEW PO SCH ×4 (08:00→20:40)
[2016-11-26] MEDS: PRENATAL VITAMIN TAB PO SCH (09:44)
[2016-11-26] MEDS: DOCUSATE SODIUM 100 MG CAP PO SCH ×2 (09:44→20:41)
[2016-11-26] MEDS: FERROUS SULFATE 325 MG TAB PO SCH (09:44)
[2016-11-26] MEDS ORDERED: BISACODYL 10 MG SUPP PR PRN (11:15)
[2016-11-26 15:50] VITALS: BP 116/74; PULSE 72; TEMP 36.9
[2016-11-26] MEDS ORDERED: OXYC-57 PO (21:31)
[2016-11-26] MEDS ORDERED: MTR600X PO (21:31)
[2016-11-26 23:00] VITALS: BP 115/74; PULSE 60; TEMP 36.8
[2016-11-27] MEDS ORDERED: OXYTOCIN INJ 30 UNITS in LACTATED RINGER'S 1000ML 1,000 ML IV PRN (02:45)
[2016-11-27] MEDS: OXYCODONE/ACETAMINOPHEN 5-325 TAB PO PRN ×2 (06:33→12:35)
[2016-11-27] MEDS: IBUPROFEN 600 MG TAB PO PRN ×2 (06:33→12:36)
[2016-11-27 07:20] VITALS: BP 107/68; PULSE 71; TEMP 36.5; O2SAT 97
[2016-11-27] MEDS: PRENATAL VITAMIN TAB PO SCH (08:50)
[2016-11-27] MEDS: FERROUS SULFATE 325 MG TAB PO SCH (08:50)
[2016-11-27] MEDS: SIMETHICONE 80 MG CHEW PO SCH ×2 (08:51→12:34)
[2016-11-27] MEDS ORDERED: ZVR400 PO (10:27)
--- NOTE | 2016-11-27 10:28 | Discharge Instructions ---
Discharge Instructions Date of Service Nov 27, 2016. Admission Reason for Admission: Previous Section, Desires Sterilization Discharge Discharge Diagnosis / Problem: s/p repeat section with bilateral tubal ligation Discharge Goals Goal(s): Routine recovery after Activity Recommendations Activity Limitations: per Instructions/Follow-up section . Instructions / Follow-Up Instructions / Follow-Up ACTIVITY RECOMMENDATIONS: * Gradual return to full activity over the next 2-3 weeks. * No lifting - nothing heavier than baby over the next 2-3 weeks. * Do not engage in vigorous exercise, sexual activity or sports until cleared by your physician. * Do not drive or operate any motorized equipment until cleared by your physician. * You may shower/bathe daily. BREAST CARE: If you are not breast feeding: * Wear a supportive bra 24 hours a day for one to two weeks. * Avoid stimulating your breasts and nipples as much as possible during the first few weeks after delivery. * When taking a shower, have the warm water hit your back, not breasts. * When your breasts feel full, apply ice packs. Usually three to four times a day helps ease the discomfort. * Take a mild pain medication (Tylenol/Motrin) when you are uncomfortable. If breast feeding: * Use breast milk to lubricate nipples. Lansinoh cream may be used for sore nipples. You do not need to remove cream prior to breast feeding. If using a different brand of cream, check the label for directions regarding removal of cream prior to nursing. * Wear a supportive bra. * If having problems with breasts or breast feeding, call a health and wellness sales consultant or your health care provider. OVER THE COUNTER MEDICATION: * For discomfort or pain, you may use Acetaminophen (Tylenol), Ibuprofen (Advil ), or Naproxen (Aleve) following the package directions. * For constipation you may use Colace following the package directions. SPECIAL CARE INSTRUCTIONS: When you are discharged from the hospital, it is important for you to follow the instructions listed below: * During the first week at home, you should be able to care for yourself and your baby. In addition, the usual light household activities are encouraged. * Limit your activities to the way you feel. Do not try to clean the house or move furniture. Be sensible. * If you actively engage in sports and have done so up until the time of your delivery, you may resume these activities as soon as you feel able. This may take up to one month or even longer. Use good judgment. * Continue to take your vitamins for at least six weeks after the of your baby. * Your diet need not be limited unless you were on a special diet before your delivery. Breast-feeding mothers need around 2500 calories per day and at least 64-80 ounces of fluid per day (8 to 10 glasses). * You should eat foods from the four major food groups. Crash diets or fad diets are to be avoided. Eating lean meats, fresh fruits and vegetables, low-fat dairy products, high fiber foods and a regular exercise program, will help you get back to your pre- weight without putting your health at risk. * Constipation is sometimes a problem after delivery. Take a mild laxative as needed. If breast feeding, Milk of Magnesia is acceptable to use. You may use a suppository or Fleets enema if no episiotomy. * A daily shower or tub bath is suggested. Be sure to thoroughly and gently dry the perineum. * A bloody vaginal discharge will usually continue until around four weeks post . A small amount of bleeding may continue for as long as six weeks. Vaginal discharge changes from the bright red bleeding after delivery to pink then brownish and finally yellowish-pink before becoming white and disappearing. * Bleeding may increase with activity. Your first period may come in 4-8 weeks. If you are breast feeding, your period may be delayed even longer. * [place] (sex) can begin whenever both you and your partner feel comfortable and do not have any form of genital infection. It is recommended that you wait at least six weeks for internal and external healing to occur. If you have questions, please talk to your health care practitioner. A condom should be used to prevent infection and . * Foreplay, gentle intercourse and lubrication is very important the first several times to prevent pain. A water-based lubricant such as K-Y jelly or Astroglide may be used. * Tampons and/or Douching should be avoided until after six weeks check-up. * If you have RH negative blood and your baby is RH positive, you will receive RHOGAM by injection prior to discharge. The nurse will give you a card to keep with you that has the date and place that you received RHOGAM after delivery. * During your care, you had a Rubella screen done to check for the presence of rubella antibodies in your blood. If your test was negative, you will receive a Rubella vaccine prior to discharge. This vaccine may cause a fever, soreness at the injection site and flu-like symptoms. If these symptoms persist, notify your health care practitioner. is not advised for three months after a Rubella vaccine. * Verbalizes understanding of car seat law as reviewed with patient nursing. * Car Seat hand-out given and reviewed with patient by nursing. * Shaken baby information reviewed with patient by nursing. Call you doctor if: * Heavy bleeding (saturating several pads an hour) or passing clots the size of your fist. * A fever >101 degrees F (38.3 degrees C) on two occasions four hours apart and /or chills. * Unusual pain in the pelvic or vaginal areas. Pain should improve each day . * Call the doctor for any increased redness, drainage or swelling around the incision and any pain unrelieved by prescribed pain medication. * Any signs or symptoms of phlebitis (possible blood clots forming in the veins ): leg pain, warm, red or swollen area on leg. * "Baby Blues" lasting longer than two weeks. If you have any questions or concerns, call your health care practitioner at . FOLLOW-UP VISIT: * Incision check (staple removal) in 1 week. Please call doctor's office at to set up appointment. * Please call the office at to schedule a 6 week examination. It is important you keep this appointment. * It is important for you to make arrangements for either yearly or twice yearly check-ups thereafter. Current Hospital Diet Patient's current hospital diet: Regular OB Diet Discharge Diet Recommended Diet: Regular OB Diet Procedures Procedures Performed: REPEAT [place] SECTION - LOW TRANSVERSE INCISION BILATERAL TUBAL LIGATION Pending Studies Studies pending at discharge: no Medical Emergencies . Who to Call and When: Medical Emergencies: If at any time you feel your situation is an emergency, please call 911 immediately. . Non-Emergent Contact Non-Emergency issues call your: Primary Care Provider, [facility] [employer] . . "Provider Documentation" section prepared by Shine Dacosta. . VTE Core Measure Inpt VTE Proph given/why not?: Treatment not indicated
--- NOTE | 2016-11-27 10:31 | OB/GYN Progress Note ---
LIVING MANAGER Progress Note Date of Service Nov 27, 2016. Subjective conversation w/ patient, physical exam Ambulation: ambulating normally Voiding: no voiding problems Passing Gas: Yes Diet Tolerance: Regular Diet Lochia: Small Pain: 08/19 Notes: Pain well controlled. Tolerating regular diet. Ambulating without difficulty. Lochia minimal. Objective Vital Signs Date Time Temp Pulse Resp B/P (MAP) Pulse Ox O2 Delivery O2 Flow Rate FiO2 11/27/16 07:45 Room Air 11/27/16 07:20 36.5 71 20 107/68 (81) 97 Room Air 11/26/16 23:00 Room Air 11/26/16 23:00 36.8 60 18 115/74 (88) Room Air 11/26/16 15:50 Room Air 11/26/16 15:50 36.9 72 20 116/74 (88) Room Air Physical Exam General Appearance: WELL-APPEARING Respiratory/Chest: chest non-tender, lungs clear Cardiovascular: regular rate, rhythm Abdomen: normal bowel sounds, soft Fundus: Firm Incision Description: Clean, Dry & Intact Extremities: normal range of motion, non-tender, no calf tenderness Assessment and Plan Post-Op Day Number: 3 Continue Routine Care: -D/C home today -F/U in 1 week for incision check.
[2016-11-27] MEDS: DOCUSATE SODIUM 100 MG CAP PO SCH (12:34)
[2016-11-27 13:38] VITALS: BP_DIAS 68; PULSE 71; TEMP 36.5
--- NOTE | 2016-12-08 19:44 | Discharge Summary ---
Discharge Summary Date of Service Dec 08, 2016. Discharge Summary Admission Date: Nov 24, 2016 at 06:56 Discharge Date: Nov 27, 2016 Discharge Disposition: Home Principal Diagnosis: IUP at 36.4 weeks, Cholestasis of , Hx prior C/S requesting repeat, requesting permanent sterilization Procedures: Repeat section with BTL Medication Reconciliation New Medications: Acyclovir (Acyclovir) 400 Mg Tab 400 MG PO TID for 7 Days, #21 Ibuprofen (Ibuprofen) 600 Mg Tab 600 MG PO Q4H PRN for Pain, THOMAS, Cramping, or Fever, #30 TAB Oxycodone/Acetaminophen 5MG/325MG (Percocet 5MG/325MG) Tab 1 TAB PO Q4H PRN for Pain - Pain Scale 1-5, #30 TAB PAIN Continued Medications: Ferrous Sulfate (Iron) 325 Mg Tab Vit W/ Ferrous Fumara (Pnv Plus Multivi) 1 Tab Tab 1 TAB PO DAILY Ranitidine (Zantac) 150 Mg Tab 150 MG PO DAILY, TAB Admission Information HPI (per Admitting provider): Patient is a 21 y/o @ 36.4 weeks was diagnosed with cholestasis of . M recommendations were to administer steroids x 2 and proceed with delivery. She has a history of a prior C/S and is requesting a repeat with bilateral tubal ligation. was uncomplicated otherwise. Physical Exam (per Admitting): General Appearance: WD/WN Respiratory/Chest: chest non-tender, lungs clear Cardiovascular: regular rate, rhythm Abdomen/GI: normal bowel sounds, soft Neurologic/Psych: alert, oriented x 3 Skin: normal color, warm/dry, no rash Hospital Course Patient underwent a repeat C/S with BTL on the morning of admission without complications. Her postop recovery was uneventful. On the morning of POD # 1 her oneil catheter was removed. Her diet and activity were advanced as tolerated. her pain was well controlled. She was discharged home on POD # 3 with discharge instructions. Total time spent on discharge = 20 mins This includes examination of the patient, discharge planning, medication reconciliation, and communication with other providers. Discharge Instructions ACTIVITY RECOMMENDATIONS: * Gradual return to full activity over the next 2-3 weeks. * No lifting - nothing heavier than baby over the next 2-3 weeks. * Do not engage in vigorous exercise, sexual activity or sports until cleared by your physician. * Do not drive or operate any motorized equipment until cleared by your physician. * You may shower/bathe daily. BREAST CARE: If you are not breast feeding: * Wear a supportive bra 24 hours a day for one to two weeks. * Avoid stimulating your breasts and nipples as much as possible during the first few weeks after delivery. * When taking a shower, have the warm water hit your back, not breasts. * When your breasts feel full, apply ice packs. Usually three to four times a day helps ease the discomfort. * Take a mild pain medication (Tylenol/Motrin) when you are uncomfortable. If breast feeding: * Use breast milk to lubricate nipples. Lansinoh cream may be used for sore nipples. You do not need to remove cream prior to breast feeding. If using a different brand of cream, check the label for directions regarding removal of cream prior to nursing. * Wear a supportive bra. * If having problems with breasts or breast feeding, call a custom decorating consultant or your health care provider. OVER THE COUNTER MEDICATION: * For discomfort or pain, you may use Acetaminophen (Tylenol), Ibuprofen (Advil ), or Naproxen (Aleve) following the package directions. * For constipation you may use Colace following the package directions. SPECIAL CARE INSTRUCTIONS: When you are discharged from the hospital, it is important for you to follow the instructions listed below: * During the first week at home, you should be able to care for yourself and your baby. In addition, the usual light household activities are encouraged. * Limit your activities to the way you feel. Do not try to clean the house or move furniture. Be sensible. * If you actively engage in sports and have done so up until the time of your delivery, you may resume these activities as soon as you feel able. This may take up to one month or even longer. Use good judgment. * Continue to take your vitamins for at least six weeks after the of your baby. * Your diet need not be limited unless you were on a special diet before your delivery. Breast-feeding mothers need around 2500 calories per day and at least 64-80 ounces of fluid per day (8 to 10 glasses). * You should eat foods from the four major food groups. Crash diets or fad diets are to be avoided. Eating lean meats, fresh fruits and vegetables, low-fat dairy products, high fiber foods and a regular exercise program, will help you get back to your pre- weight without putting your health at risk. * Constipation is sometimes a problem after delivery. Take a mild laxative as needed. If breast feeding, Milk of Magnesia is acceptable to use. You may use a suppository or Fleets enema if no episiotomy. * A daily shower or tub bath is suggested. Be sure to thoroughly and gently dry the perineum. * A bloody vaginal discharge will usually continue until around four weeks post . A small amount of bleeding may continue for as long as six weeks. Vaginal discharge changes from the bright red bleeding after delivery to pink then brownish and finally yellowish-pink before becoming white and disappearing. * Bleeding may increase with activity. Your first period may come in 4-8 weeks. If you are breast feeding, your period may be delayed even longer. * [place] (sex) can begin whenever both you and your partner feel comfortable and do not have any form of genital infection. It is recommended that you wait at least six weeks for internal and external healing to occur. If you have questions, please talk to your health care practitioner. A condom should be used to prevent infection and . * Foreplay, gentle intercourse and lubrication is very important the first several times to prevent pain. A water-based lubricant such as K-Y jelly or Astroglide may be used. * Tampons and/or Douching should be avoided until after six weeks check-up. * If you have RH negative blood and your baby is RH positive, you will receive RHOGAM by injection prior to discharge. The nurse will give you a card to keep with you that has the date and place that you received RHOGAM after delivery. * During your care, you had a Rubella screen done to check for the presence of rubella antibodies in your blood. If your test was negative, you will receive a Rubella vaccine prior to discharge. This vaccine may cause a fever, soreness at the injection site and flu-like symptoms. If these symptoms persist, notify your health care practitioner. is not advised for three months after a Rubella vaccine. * Verbalizes understanding of car seat law as reviewed with patient nursing. * Car Seat hand-out given and reviewed with patient by nursing. * Shaken baby information reviewed with patient by nursing. Call you doctor if: * Heavy bleeding (saturating several pads an hour) or passing clots the size of your fist. * A fever >101 degrees F (38.3 degrees C) on two occasions four hours apart and /or chills. * Unusual pain in the pelvic or vaginal areas. Pain should improve each day . * Call the doctor for any increased redness, drainage or swelling around the incision and any pain unrelieved by prescribed pain medication. * Any signs or symptoms of phlebitis (possible blood clots forming in the veins ): leg pain, warm, red or swollen area on leg. * "Baby Blues" lasting longer than two weeks. If you have any questions or concerns, call your health care practitioner at . FOLLOW-UP VISIT: * Incision check (staple removal) in 1 week. Please call doctor's office at to set up appointment. * Please call the office at to schedule a 6 week examination. It is important you keep this appointment. * It is important for you to make arrangements for either yearly or twice yearly check-ups thereafter.
== END 2016-11-27 13:50 | disposition home or self-care (01) | DRG 765 ==
LOC: C.LD 06:56 → EDSTATUS 11:13 → C.OBG 13:54
PROVIDERS: ADMIT Obstetrics & Gynecology; ATTEND Obstetrics & Gynecology
PROC: 0UB70ZZ Excision of Bilateral Fallopian Tubes, Open Approach (ICD-10-PCS; principal; 2016-11-24 09:00)
PROC: 10D00Z1 Extraction of Products of Conception, Low, Open Approach (ICD-10-PCS; principal; 2016-11-24 09:00)
DX: O34.211 Maternal care for low transverse scar from previous cesarean delivery (principal); K83.1 Obstruction of bile duct; O26.62 Liver and biliary tract disorders in childbirth; Z3A.36 36 weeks gestation of pregnancy; Z37.0 Single live birth

== ENCOUNTER 2017-01-30 16:56 | Emergency (ER) | payer OTHER ==
[~2017-01-30] VITALS: Ht 157.5 cm; Wt 78.7 kg
[~2017-01-30 16:56] MED LIST changes: -CEFAZOLIN IV 2,000 MG in DEXTROSE 5% 50ML IV SCH; -CITRIC ACID/SODIUM CITRATE 15 ML UDC PO SCH; -LACTATED RINGER'S 1000ML 1,000 ML IV SCH; +MTR600X PO; +OXYC-57 PO; +ZVR400 PO
[2017-01-30 17:04] VITALS: TEMP 36.6; Ht 157.5 cm; Wt 78.7 kg
[2017-01-30] MEDS ORDERED: SODIUM CHLORIDE 0.9% 1000ML 1,000 ML IV STA (18:21)
[2017-01-30] MEDS ORDERED: PRLSR20 PO (18:59)
[2017-01-30] MEDS ORDERED: DOCU-94 PO (19:00)
[2017-01-30 19:14] LABS: BASO % 0.4 %; BASO ABS # 0.03 K/uL (0-0.2); COMPLETE YES; EOS % 3.3 %; HEMATOCRIT 35.6 % (37-47); IG% 0.1 %; LYMPH % 29.4 %; LYMPH ABS # 2.13 K/uL (1.2-3.4); MEAN CELL VOLUME 79.5 fL (80-100); MEAN CORPUSCULAR HEMOGLOBIN 26.3 pg (25-34); MEAN CORPUSCULAR HGB CONC 33.1 g/dl (32-36); MEAN PLATELET VOLUME 9.7 fL (7.4-10.4); MONO % 8.3 %; NEUT % 58.5 %; PLATELET COUNT 270 K/uL (130-400); RED BLOOD COUNT 4.48 M/uL (4.2-5.4); WHITE BLOOD COUNT 7.24 K/uL (4.8-10.8)
[2017-01-30 19:23] LABS: URINE APPEARANCE CLEAR (CLEAR); URINE BILIRUBIN NEG (NEG); URINE COLOR YELLOW; URINE NITRITE NEG (NEG); URINE PH 8.5 (4.5-7.5); URINE SPECIFIC GRAVITY 1.021 (1.000-1.030); UROBILINOGEN NEG (NEG); ZZUR CULT IF INDIC CLEAN CATCH NO
[2017-01-30 19:24] LABS: PROTHROMBIN TIME (PATIENT) 10.7 SECONDS (9.0-12.0)
[2017-01-30 19:26] LABS: MANUAL MICROSCOPIC REQUIRED? NO; REVIEW REQ? NO
[2017-01-30 19:31] LABS: BUN/CREATININE RATIO 14.5 (10-20); CALCIUM 9.1 mg/dl (8.5-10.1); CREATININE 0.82 mg/dl (0.60-1.20); POTASSIUM 3.7 mmol/L (3.5-5.1)
[2017-01-30 19:41] LABS: THYROID STIMULATING HORMONE 1.14 uIu/ml (0.300-4.500)
--- NOTE | 2017-01-30 20:02 | DIAGNOSTIC IMAGING REPORT ---
PELVIC ULTRASOUND, TRANSABDOMINAL AND TRANSVAGINAL HISTORY: heavy vaginal bleeding, pelvic pain COMPARISON: Pelvic ultrasound 03/06/2013. FINDINGS: Uterus: 7.9 x 4.8 x 5.6 cm. The uterus is retroflexed. There are few small nabothian cysts. The uterus is heterogeneous. No definite masses. Trace fluid within the cervical canal. Endometrial stripe: 6 mm in thickness. Right ovary: Normal in size and demonstrates normal color flow. Left ovary: Normal in size and demonstrates normal color flow. Miscellaneous:No pelvic free fluid. IMPRESSION: 1. Normal endometrial stripe. 2. The uterus is slightly heterogeneous. However, there are no masses identified. 3. Trace fluid within the cervical canal. 4. Normal ovaries. Electronically signed by: Refugio Rubi M.D. 01/30/2017 8:01 PM Dictated Date/Time: 01/30/2017 7:57 PM
--- NOTE | 2017-01-30 20:26 | EMERGENCY ROOM VISIT NOTE ---
History First contact with patient: 17:53 Chief Complaint: VAGINAL BLEEDING Stated Complaint: BLEEDING ALOT History of Present Illness The patient is a 22 year old female who presents to the Emergency Room with complaints of heavy vaginal bleeding. The patient states that she had a C- section 2 months ago. She had normal bleeding afterward, but states this is her first period since then. She began having heavy vaginal bleeding 4 days ago. She states the bleeding gradually worsened and a few days ago, she was needing to change her tampon and pad every few hours. She states the bleeding stopped last night, but returned this morning. She called her [facility]' s office and they told her to come here for evaluation. She denies any history of abnormal vaginal bleeding. She denies any history of bleeding disorders. She reports some mild pelvic cramping and rates it 6/10. She denies any dizziness, lightheadedness or syncope. She has an appointment set up with her [facility] in 2 days. Review of Systems A complete 10 point review of systems was reviewed with the patient with pertinent positives and negatives as per history of present illness. All else were negative. Past Medical/Surgical History Medical Problems: (1) Abdominal trauma (2) ASTHMA, UNSPECIFIED (3) delivery delivered (4) Decreased movement (5) DEPRESSIVE DISORDER NEC Family History Diabetes mellitus FH: cancer FH: heart disease FH: lung disease FHx: Crohn's disease Hypertension Social History Smoking Status: Never Smoker Alcohol Use: none Marital Status: in relationship Housing Status: lives with significant other Occupation Status: student Current/Historical Medications Scheduled Docusate Sodium (Colace), 100 MG PO DAILY Ferrous Sulfate (Iron), 325 MG PO DAILY Omeprazole (Prilosec), 20 MG PO DAILY Vit W/ Ferrous Fumara (Pnv Plus Multivi), 1 TAB PO DAILY Physical Exam Vital Signs Date Time Temp Pulse Resp B/P (MAP) Pulse Ox O2 Delivery O2 Flow Rate FiO2 01/30/17 20:33 57 18 119/65 99 01/30/17 19:04 84 18 112/70 98 Room Air 01/30/17 17:04 36.6 96 18 125/85 100 Room Air Physical Exam VITALS: Vitals are noted on the nurse's note and reviewed by myself. Vital signs stable. GENERAL: This is a 22-year-old female, in no acute distress, nondiaphoretic, well-developed well-nourished. SKIN: Capillary reflex less than 2 seconds. HEENT: Normocephalic. PERRLA. Mucous membranes moist. Neck is supple without nuchal rigidity. HEART: Regular rate and rhythm without murmurs gallops or rubs. LUNGS: Clear to auscultation bilaterally without wheezes, rales or rhonchi. ABDOMEN: Positive bowel sounds x 4. Soft, mild tenderness to palpation across the lower abdomen. NEURO: Patient was alert and oriented to person place and time. Medical Decision & Procedures ER Provider Diagnostic Interpretation: PELVIC ULTRASOUND, TRANSABDOMINAL AND TRANSVAGINAL HISTORY: heavy vaginal bleeding, pelvic pain COMPARISON: Pelvic ultrasound 03/06/2013. FINDINGS: Uterus: 7.9 x 4.8 x 5.6 cm. The uterus is retroflexed. There are few small nabothian cysts. The uterus is heterogeneous. No definite masses. Trace fluid within the cervical canal. Endometrial stripe: 6 mm in thickness. Right ovary: Normal in size and demonstrates normal color flow. Left ovary: Normal in size and demonstrates normal color flow. Miscellaneous:No pelvic free fluid. IMPRESSION: 1. Normal endometrial stripe. 2. The uterus is slightly heterogeneous. However, there are no masses identified. 3. Trace fluid within the cervical canal. 4. Normal ovaries. Laboratory Results 01/30/17 18:55 Red Blood Count 4.48, Mean Corpuscular Volume 79.5, Mean Corpuscular Hemoglobin 26.3, Mean Corpuscular Hemoglobin Concent 33.1, Mean Platelet Volume 9.7, Neutrophils (%) (Auto) 58.5, Lymphocytes (%) (Auto) 29.4, Monocytes (%) (Auto) 8.3, Eosinophils (%) (Auto) 3.3, Basophils (%) (Auto) 0.4, Neutrophils # (Auto) 4.23, Lymphocytes # (Auto) 2.13, Monocytes # (Auto) 0.60, Eosinophils # (Auto) 0.24, Basophils # (Auto) 0.03 01/30/17 18:55 Test 01/30/17 18:55 01/30/17 19:00 White Blood Count 7.24 K/uL (4.8-10.8) Red Blood Count 4.48 M/uL (4.2-5.4) Hemoglobin 11.8 g/dL (12.0-16.0) Hematocrit 35.6 % (37-47) Mean Corpuscular Volume 79.5 fL (80-100) Mean Corpuscular Hemoglobin 26.3 pg (25-34) Mean Corpuscular Hemoglobin Concent 33.1 g/dl (32-36) Platelet Count 270 K/uL (130-400) Mean Platelet Volume 9.7 fL (7.4-10.4) Neutrophils (%) (Auto) 58.5 % Lymphocytes (%) (Auto) 29.4 % Monocytes (%) (Auto) 8.3 % Eosinophils (%) (Auto) 3.3 % Basophils (%) (Auto) 0.4 % Neutrophils # (Auto) 4.23 K/uL (1.4-6.5) Lymphocytes # (Auto) 2.13 K/uL (1.2-3.4) Monocytes # (Auto) 0.60 K/uL (0.11-0.59) Eosinophils # (Auto) 0.24 K/uL (0-0.5) Basophils # (Auto) 0.03 K/uL (0-0.2) RDW Standard Deviation 52.0 fL (36.4-46.3) RDW Coefficient of Variation 17.7 % (11.5-14.5) Immature Granulocyte % (Auto) 0.1 % Immature Granulocyte # (Auto) 0.01 K/uL (0.00-0.02) Prothrombin Time 10.7 SECONDS (9.0-12.0) Prothromb Time International Ratio 1.0 (0.9-1.1) Activated Partial Thromboplast Time 26.8 SECONDS (21.0-31.0) Partial Thromboplastin Ratio 1.0 Anion Gap 6.0 mmol/L (3-11) Est Creatinine Clear Calc Drug Dose 104.6 ml/min Estimated GFR () 117.7 Estimated GFR (Non- 101.6 BUN/Creatinine Ratio 14.5 (10-20) Calcium Level 9.1 mg/dl (8.5-10.1) Total Bilirubin 0.2 mg/dl (0.2-1) Aspartate Amino Transf (AST/SGOT) 15 U/L (15-37) Alanine Aminotransferase (ALT/SGPT) 21 U/L (12-78) Alkaline Phosphatase 109 U/L (45-117) Total Protein 7.1 gm/dl (6.4-8.2) Albumin 3.5 gm/dl (3.4-5.0) Globulin 3.6 gm/dl (2.5-4.0) Albumin/Globulin Ratio 1.0 (0.9-2) Thyroid Stimulating Hormone (TSH) 1.140 uIu/ml (0.300-4.500) Urine Color YELLOW Urine Appearance CLEAR (CLEAR) Urine pH 8.5 (4.5-7.5) Urine Specific [place] 1.021 (1.000-1.030) Urine Protein NEG (NEG) Urine Glucose (UA) NEG (NEG) Urine Ketones NEG (NEG) Urine Occult Blood 3+ (NEG) Urine Nitrite NEG (NEG) Urine Bilirubin NEG (NEG) Urine Urobilinogen NEG (NEG) Urine Leukocyte Esterase TRACE (NEG) Urine WBC (Auto) 1-5 /hpf (0-5) Urine RBC (Auto) >30 /hpf (0-4) Urine Hyaline Casts (Auto) 1-5 /lpf (0-5) Urine Epithelial Cells (Auto) 10-20 /lpf (0-5) Urine Bacteria (Auto) NEG (NEG) Urine Test NEG (NEG) Medications Administered Medications (Trade) Dose Ordered Sig/[place] Route Start Time Stop Time Status Last Admin Dose Admin Sodium Chloride 1,000 ml @ 999 mls/hr Q1H1M STAT IV 01/30/17 18:21 01/30/17 19:21 DC 01/30/17 19:05 999 MLS/HR ED Course The patient was evaluated as above. Labs were drawn and IV access was obtained. Pelvic ultrasound was performed and read by radiology as above. Patient was reevaluated and findings were discussed. Discharge instructions were reviewed with the patient. The patient verbalized understanding of my assessment and treatment plan and was discharged home in good condition. Medical Decision Differential diagnosis includes anemia, abnormal vaginal bleeding, uterine abnormality, miscarriage, among others. The patient is a 22-year-old female who presents today complaining of heavy vaginal bleeding. The patient is 2 months . This is her first period since the delivery. Labs revealed a very mild leukocytosis of 11.8. Patient does report a history of anemia and this seems to be stable for her. Labs were otherwise unremarkable. Pelvic ultrasound was unremarkable. Vital signs are within normal limits. The patient has an appointment set up with OB/ [facility] in 2 days. She was encouraged to keep this appointment for follow-up. She was encouraged to return here for any signs of worsening anemia or new/ concerning symptoms. Based on the patient's presentation and work up, I feel the patient is stable for outpatient treatment. The patient was educated to return to the emergency department for any worsening of their current condition or new/concerning symptoms. She will follow up with [facility]. Medication Reconcilliation Current Medication List: was personally reviewed by me Blood Pressure Screening Patient's blood pressure: Normal blood pressure Impression Primary Impression: Vaginal bleeding Departure Information Dispostion Home / Self-Care Condition GOOD Referrals Will Mckeon III, M.D. (PCP) Patient Instructions My [facility] Additional Instructions Follow-up with [facility] as scheduled. For pain control, you can use the following [id number] medicines (if >12 yo): - Regular strength (325mg/tab) Tylenol (acetaminophen) 2 tabs every 4-6 hours as needed. Do not exceed 12 tablets in a 24 hour period. Avoid taking more than 4 grams (4000 mg) of Tylenol per day. This includes any other sources of acetaminophen you may take on a regular basis. - Regular strength (200 mg/tab) Advil (ibuprofen) 1-2 tabs every 4-6 hours as needed. Do not exceed a dose of 3200 mg per day. Rest as much as possible, no strenuous activity for 48 hours. Follow-up with [facility] as scheduled on Monday. Return to the emergency department with worsening bleeding, worsening pain, vomiting, fevers or any other new/concerning symptoms.
[2017-01-30 20:33] VITALS: BP 119/65; PULSE 57; O2SAT 99
== END 2017-01-30 20:35 | disposition home or self-care (01) ==
LOC: C.EDB 16:57 → C.EDC 20:35
DX: N93.8 Other specified abnormal uterine and vaginal bleeding (principal); F32.9 Major depressive disorder, single episode, unspecified; J45.909 Unspecified asthma, uncomplicated; Z79.899 Other long term (current) drug therapy; Z83.3 Family history of diabetes mellitus; Z80.9 Family history of malignant neoplasm, unspecified; Z82.49 Family history of ischemic heart disease and other diseases of the circulatory system

== ENCOUNTER 2020-03-21 18:04 | Inpatient (IN) ==
[2020-03-21] MEDS ORDERED: KETOROLAC 30 MG/ML VIAL IV ONE (18:34)
--- NOTE | 2020-03-21 18:39 | Emergency Department Note ---
History of Present Illness General Chief complaint: Flank Pain Stated complaint: FLANK PAIN Time Seen by Provider: 03/21/20 18:15 History of Present Illness Maximum Pain Intensity: 7 This patient is a 25-year-old female who presents ambulatory to the emergency department for evaluation of a sharp, shooting pain into the right abdomen that started this morning. The pain is been constant, and worse with movement. She tried Tylenol 3 with no improvement of the pain. She denies any nausea or vomiting. No urinary symptoms. She is uncertain of her last menstrual period. Bowel movements have been normal. No fever. Home Medications Home Medications Medication Instructions Recorded Confirmed Type Cholestyramine Light 4 g PO QPM 02/06/20 03/21/20 History famotidine 40 mg PO HS 02/06/20 03/21/20 History omeprazole 40 mg PO QAM 02/06/20 03/21/20 History ibuprofen 600 mg PO TID PRN 03/04/20 03/21/20 History acetaminophen-codeine 1 tab PO UD PRN 03/21/20 03/21/20 History [Tylenol-Codeine #3] Allergies Allergy/AdvReac Type Severity Reaction Status Date / Time No Known Allergies Allergy Verified 03/21/20 21:09 Past Med/Surg History Medical History Asthma hx, no inhaler GERD (gastroesophageal reflux disease) occasional Obesity PVC (premature ventricular contraction) hx, no recent issues, NSR without arrhythmia on 09/2019 EKG Surgical History History of cardiac radiofrequency ablation approximately 2016 History of section X2 History of cholecystectomy History of colonoscopy History of esophagogastroduodenoscopy (EGD) History of tonsillectomy History of tooth extraction WTE Family History Grandmother (Maternal) Family history of diabetes mellitus Family hx of colon cancer Father Family history of diabetes mellitus Social History Smoking Status: Never smoker Tobacco Type: Cigarettes Cigarettes Per Day: 10 CIGS A DAY (intermittent x few years); Second Hand Exposure: No; Hx Alcohol Use: No Hx Substance Use: No Preferred Language: Hungarian Communication Ability: Effective Threader Operator Required: No Beliefs That Will Affect Care: None marital status: Current Living Situation: Spouse and Family current occupational status: unemployed Feels Safe at Home: Yes Assistive Devices: Glasses Review of Systems A total of 10 systems reviewed and were otherwise negative Physical Exam Vital Signs Vital Signs - 24 hr 03/21/20 18:10 03/21/20 20:04 Temperature 37.2 C Temperature Source Oral Pulse Rate 105 H Respiratory Rate 20 Blood Pressure 125/84 Blood Pressure [Left Arm] 142/91 H Blood Pressure Mean 97 Blood Pressure Mean [Left Arm] 108 Pulse Oximetry 98 Oxygen Delivery Method Room Air Sepsis Recent Fever Within 48 Hours No Sepsis New/Unexplained Change in Mental Status No Sepsis Action Taken by Nursing No Action Required Constitutional WD/WN, vitals as above Eyes EOM intact bilaterally ENMT external ear and nose normal, oropharynx normal Neck trachea midline Respiratory normal respiratory effort, lungs clear to auscultation Cardiovascular RRR, no murmur, no edema Gastrointestinal (Abdomen) Tenderness palpation in the right upper quadrant. No guarding or rebound tender ness. Bowel sounds present in all 4 quadrants. Mild right-sided CVA tenderness noted Musculoskeletal no cyanosis or clubbing, extremities motor strength 5/5 Skin no rashes, warm and dry Neurologic Alert and oriented x3. No focal motor deficits. Psychiatric Acting appropriately Course Course Patient was seen and examined Vital signs including blood pressure were reviewed medications list was verified with patient Labs were obtained, and a saline lock was established Upon reevaluation, the patient was resting comfortably. We discussed her results. She voiced understanding, and was comfortable with the disposition. Hospitalist service was consulted. They agreed to evaluate the patient for likely inpatient management. Consultations Consultation #1: Dr. Pendleton Administered Medications Heparin Sodium/Dextrose (Heparin Sodium/Dextrose) 25,000 units in 500 mls @ 22 mls/hr IV .[id number] [facility]; Protocol Stop: 04/20/20 21:59 Last Admin: 03/21/20 23:35 Dose: 1,100 units/hr, 22 mls/hr Documented by: [id number] Cosigned by: [id number] Discontinued Medications Heparin Sodium/Dextrose (Heparin Iv Standard With Bolus) 1 ea IV Q15M [facility]; Protocol Stop: 03/22/20 02:00 Last Admin: 10/10/20 23:13 Dose: Not Given Documented by: [id number] Heparin Sodium (Porcine) 5,000 (units/ Syringe) 5 mls @ 10 mls/min IV NOW ONE Stop: 03/21/20 22:46 Last Admin: 03/21/20 23:36 Dose: 10 mls/min Documented by: [id number] Cosigned by: [id number] Ioversol (Optiray 320 125ml) 80 ml IV ONCE ONE Stop: 03/21/20 19:28 Last Admin: 03/21/20 19:28 Dose: 80 ml Documented by: [id number] Ketorolac Tromethamine (Ketorolac 30 Mg/Ml Vial) 30 mg IV NOW ONE Stop: 03/21/20 18:35 Last Admin: 03/21/20 18:55 Dose: 30 mg Documented by: [id number] Potassium Chloride (Potassium Chloride 20 Meq Tabcr) 20 meq PO NOW STA Stop: 03/21/20 21:25 Last Admin: 03/21/20 21:45 Dose: 20 meq Documented by: [id number] Medical Decision Making Medical Records Attestation: I reviewed the patient's medical records. Home Medications Current Medication List: was personally reviewed by me Laboratory Data Attestation: I reviewed the patient's lab results. Result diagrams: 03/21/20 18:48 03/21/20 18:48 Lab Results 03/21/20 03/21/20 03/21/20 Range/Units 18:48 18:48 18:48 WBC 7.21 (4.8-10.8) K/uL RBC 4.21 (4.2-5.4) M/uL Hgb 12.5 (12.0-16.0) g/dL Hct 36.7 L (37-47) % MCV 87.2 (80-100) fL MCH 29.7 (25-34) pg MCHC 34.1 (32-36) g/dL RDW Std Deviation 44.3 (36.4-46.3) fL RDW Coeff of Fritz 13.8 (11.5-14.5) % Plt Count 298 (130-400) K/uL MPV 9.4 (7.4-10.4) fL Immature Gran % (Auto) 0.3 % Neut % (Auto) 57.3 % Lymph % (Auto) 30.8 % Clarke % (Auto) 10.4 % Eos % (Auto) 1.1 % Baso % (Auto) 0.1 % Neut # (Auto) 4.13 (1.4-6.5) K/uL Lymph # (Auto) 2.22 (1.2-3.4) K/uL Clarke # (Auto) 0.75 H (0.11-0.59) K/uL Eos # (Auto) 0.08 (0-0.5) K/uL Baso # (Auto) 0.01 (0-0.2) K/uL Immature Gran # (Auto) 0.02 (0.00-0.02) K/uL PT (9.0-12.0) Seconds INR (0.9-1.1) APTT (21.0-31.0) Seconds PTT Ratio D-Dimer 690 H* (0-500) ug/L FEU Sodium 137 (136-145) mmol/L Potassium 3.4 L (3.5-5.1) mmol/L Chloride 107 (98-107) mmol/L Carbon Dioxide 26 (21-32) mmol/L Anion Gap 4.0 (3-11) BUN 7 (7-18) mg/dl Creatinine 0.70 (0.6-1.2) mg/dl Est Cr Clr Drug Dosing 121.2 ml/min Est GFR ( Amer) 139.6 Est GFR (Non-Af Amer) 120.4 BUN/Creatinine Ratio 9.5 L (10-20) Glucose 84 (70-99) mg/dl Calcium 8.7 (8.5-10.1) mg/dl Total Bilirubin 1.1 H (0.2-1) mg/dl AST 422 H (15-37) U/L ALT 284 H (12-78) U/L Alkaline Phosphatase 212 H (45-117) U/L Total Protein 7.0 (6.4-8.2) gm/dl Albumin 3.5 (3.4-5.0) gm/dl Globulin 3.5 (2.5-4.0) gm/dl Albumin/Globulin Ratio 1.0 (0.9-2) Urine Color Urine Appearance (Clear) Urine pH (4.5-7.5) Ur Specific [place] (1.000-1.030) Urine Protein (Negative) Urine Glucose (UA) (Negative) Urine Ketones (Negative) Urine Blood (Negative) Urine Nitrite (Negative) Urine Bilirubin (Negative) Urine Urobilinogen (Negative) Ur Leukocyte Esterase (Negative) Urine WBC (Auto) (0-5) /hpf Urine RBC (Auto) (0-4) /hpf U Hyaline Cast (Auto) (0-5) /lpf U Epithel Cells (Auto) (0-5) /lpf Urine Bacteria (Auto) (Negative) Urine Test (Negative) 03/21/20 03/21/20 03/21/20 Range/Units 18:48 18:48 20:05 WBC (4.8-10.8) K/uL RBC (4.2-5.4) M/uL Hgb (12.0-16.0) g/dL Hct (37-47) % MCV (80-100) fL MCH (25-34) pg MCHC (32-36) g/dL RDW Std Deviation (36.4-46.3) fL RDW Coeff of Fritz (11.5-14.5) % Plt Count (130-400) K/uL MPV (7.4-10.4) fL Immature Gran % (Auto) % Neut % (Auto) % Lymph % (Auto) % Clarke % (Auto) % Eos % (Auto) % Baso % (Auto) % Neut # (Auto) (1.4-6.5) K/uL Lymph # (Auto) (1.2-3.4) K/uL [place] # (Auto) (0.11-0.59) K/uL Eos # (Auto) (0-0.5) K/uL Baso # (Auto) (0-0.2) K/uL Immature Gran # (Auto) (0.00-0.02) K/uL PT 11.0 (9.0-12.0) Seconds INR 1.0 (0.9-1.1) APTT 29.4 (21.0-31.0) Seconds PTT Ratio 1.1 D-Dimer (0-500) ug/L FEU Sodium (136-145) mmol/L Potassium (3.5-5.1) mmol/L Chloride (98-107) mmol/L Carbon Dioxide (21-32) mmol/L Anion Gap (3-11) BUN (7-18) mg/dl Creatinine (0.6-1.2) mg/dl Est Cr Clr Drug Dosing ml/min Est GFR ( Amer) Est GFR (Non-Af Amer) BUN/Creatinine Ratio (10-20) Glucose (70-99) mg/dl Calcium (8.5-10.1) mg/dl Total Bilirubin (0.2-1) mg/dl AST (15-37) U/L ALT (12-78) U/L Alkaline Phosphatase (45-117) U/L Total Protein (6.4-8.2) gm/dl Albumin (3.4-5.0) gm/dl Globulin (2.5-4.0) gm/dl Albumin/Globulin Ratio (0.9-2) Urine Color Yellow Urine Appearance Clear (Clear) Urine pH 6.0 (4.5-7.5) Ur Specific [place] 1.005 (1.000-1.030) Urine Protein Negative (Negative) Urine Glucose (UA) Negative (Negative) Urine Ketones Negative (Negative) Urine Blood 1+ H (Negative) Urine Nitrite Negative (Negative) Urine Bilirubin Negative (Negative) Urine Urobilinogen Negative (Negative) Ur Leukocyte Esterase Negative (Negative) Urine WBC (Auto) 1-5 (0-5) /hpf Urine RBC (Auto) 0-4 (0-4) /hpf U Hyaline Cast (Auto) 0 (0-5) /lpf U Epithel Cells (Auto) 5-10 H (0-5) /lpf Urine Bacteria (Auto) Negative (Negative) Urine Test Negative (Negative) Imaging Data Attestation: I personally reviewed and interpreted this imaging study as follows: Radiologist's Impression: CT abdomen and pelvis w/o contrast IMPRESSION: 1. Right lower lobe pulmonary infarct. Right lower lobe pulmonary emboli depicted on the chest CT. Please see that report for further description. Trace right pleural effusion. 2. No urinary calculi or hydronephrosis. 3. No acute process within the abdomen or pelvis on unenhanced exam. 4. No evidence for acute appendicitis. No bowel obstruction. ACT 112: Negative or not required by law. Electronically signed by: Malcolm Stanley M.D. 03/21/2020 7:47 PM Dictated: 03/21/201942 Transcribed: 03/21/201942 CTA chest IMPRESSION: 1. Several segmental and subsegmental pulmonary emboli within the right lower lobe with resultant 4.1 cm right lower lobe pulmonary infarct. 2. 5 mm right lower lobe nodule. This is likely benign. A follow-up chest CT in 6 months to ensure stability is recommended. ACT 112: Negative or not required by law. Electronically signed by: Malcolm Stanley M.D. 03/21/2020 7:43 PM Dictated: 03/21/201937 Transcribed: 03/21/201937 MDM Narrative Differential diagnosis: Ureteral stone, ovarian cyst, uterine fibroids, ectopic , Endometriosis, retained stone, pulmonary embolus, among others were entertained This patient is a 25-year-old female that presents the emergency department complaining of right lower chest/right upper abdominal pain that started this morning. On exam, her vital signs were stable. She was mildly tachycardic. There is no leukocytosis. Her LFTs are elevated. She denies any significant alcohol use. Her d-dimer was also elevated. Given her history of recent surgery and the fact that the patient smokes 1/2 pack of cigarettes per day, we proceeded with a CT. This is consistent with multiple pulmonary emboli and a pulmonary infarct. This likely explains her pain. Given the extent of the pulmonary emboli and the infarct, I do not feel comfortable sending the patient home. [facility] and would likely evaluate the patient for inpatient management. Impression & Plan Pulmonary embolism Discharge Plan Visit Data Chief Complaint: Flank Pain Stated Complaint: FLANK PAIN ED Provider: Andrews [facility] ED Midlevel Provider: Sulma Jarvis Discharge Problem: Pulmonary embolism Patient Disposition: Admitted As Inpatient Condition: Fair Discharge Instructions Interventions: ED Discharge Assessment Last Done: 03/21/20 22:25
[2020-03-21 19:03] LABS: Basophils # (auto) 0.01 K/uL (0-0.2); Basophils % (auto) 0.1 %; Eosinophils # (auto) 0.08 K/uL (0-0.5); Eosinophils % (auto) 1.1 %; Hematocrit (blood only) 36.7 % (37-47); Hemoglobin 12.5 g/dL (12.0-16.0); Immature Granulocytes # (auto) 0.02 K/uL (0.00-0.02); Immature Granulocytes % (auto) 0.3 %; Lymphocytes # (auto) 2.22 K/uL (1.2-3.4); Lymphocytes % (auto) 30.8 %; Mean Corpuscular Hemoglobin 29.7 pg (25-34); Mean Corpuscular Hgb Conc 34.1 g/dL (32-36); Mean Corpuscular Volume 87.2 fL (80-100); Mean Platelet Volume 9.4 fL (7.4-10.4); Monocytes # (auto) 0.75 K/uL (0.11-0.59); Monocytes % (auto) 10.4 %; Neutrophils # (auto) 4.13 K/uL (1.4-6.5); Neutrophils % (auto) 57.3 %; Platelet Count 298 K/uL (130-400); RDW Coefficient of Variation 13.8 % (11.5-14.5); RDW Standard Deviation 44.3 fL (36.4-46.3); Red Blood Count 4.21 M/uL (4.2-5.4); White Blood Count 7.21 K/uL (4.8-10.8)
[2020-03-21 19:04] LABS: Pregnancy Test, Urine Negative (Negative)
[2020-03-21 19:06] LABS: Appearance Urine Clear (Clear); Bilirubin Urine Negative (Negative); Blood Urine 1+ (Negative); Color Urine Yellow; Glucose Urine UA Negative (Negative); Ketones Urine Negative (Negative); Leukocyte Esterase Urine Negative (Negative); Nitrite Urine Negative (Negative); Protein Urine Negative (Negative); Specific Gravity Urine 1.005 (1.000-1.030); Urobilinogen Urine Negative (Negative)
[2020-03-21 19:17] LABS: D Dimer 690 ug/L FEU (0-500)
[2020-03-21 19:25] LABS: Albumin Level 3.5 gm/dl (3.4-5.0); BUN Creatinine Ratio 9.5 (10-20); Calcium 8.7 mg/dl (8.5-10.1); Creatinine Clr Calc Pharmacy 121.2 ml/min; Est GFR (African American) 139.6; Est GFR (Non-African American) 120.4; Potassium 3.4 mmol/L (3.5-5.1)
[2020-03-21] MEDS ORDERED: OPTIRAY 320 125ml IV ONE (19:27)
[2020-03-21 19:28] LABS: Bilirubin,Total 1.1 mg/dl (0.2-1); Globulin 3.5 gm/dl (2.5-4.0)
--- NOTE | 2020-03-21 19:44 | CT Scan Report ---
CT ANGIOGRAPHY OF THE CHEST, PULMONARY EMBOLUS PROTOCOL CLINICAL HISTORY: Elevated d-dimer right-sided upper abdominal pain COMPARISON STUDY: Chest radiograph September 15, 2019. TECHNIQUE: Following IV administration of 80 mL of Optiray-320, helical axial images of the chest wer e obtained utilizing the pulmonary embolus protocol. Maximal intensity projections and sagittal and coronal reformats were viewed on an independent 3D workstation. IV contrast was administered without complication. Automated exposure control was utilized for the study. A dose lowering technique was utilized adhering to the principles of ALARA. CT DOSE: 357.96 mGy.cm FINDINGS: Note is made of several segmental and subsegmental pulmonary emboli within the right lower lobe. This results in a 4.1 cm right lower lobe pulmonary infarct. No central pulmonary embolus is p resent. There is no CT evidence for right heart strain. There is no thoracic lymphadenopathy. No thor acic aortic dissection is noted. A 5 mm right lower lobe nodule on image 117 of 248 is noted. The abd omen and pelvis will be reported separately. There is a trace right pleural effusion. The caliber of the thoracic aorta is normal. IMPRESSION: 1. Several segmental and subsegmental pulmonary emboli within the right lower lobe with resultant 4.1 cm right lower lobe pulmonary infarct. 2. 5 mm right lower lobe nodule. This is likely benign. A follow-up chest CT in [address] ability is recommended. ACT 112: Negative or not required by law. Electronically signed by: Malcolm Stanley M.D. 03/21/2020 7:43 PM
--- NOTE | 2020-03-21 19:48 | CT Scan Report ---
CT OF THE ABDOMEN AND PELVIS WITHOUT CONTRAST CLINICAL HISTORY: Right flank pain COMPARISON STUDY: CT of the abdomen and pelvis December 15, 2019. TECHNIQUE: Axial images of the abdomen and pelvis were obtained without IV contrast. Images were revi ewed in the axial, sagittal, and coronal planes. Automated exposure control was utilized for the walker dy. A dose lowering technique was utilized adhering to the principles of ALARA. FINDINGS: Please note that the chest CT will be reported separately. This demonstrates a a few right lower lobe pulmonary emboli with resultant right lower lobe pulmonary infarct. No renal, ureteral or bladder calculi are present. There is no hydronephrosis or hydroureter. Evaluation of the remainder o f the abdomen and pelvis is suboptimal on this unenhanced examination. There is no biliary ductal dil atation status post cholecystectomy. The spleen, adrenal adrenal glands and pancreas are unremarkable . There is no evidence for a bowel obstruction. There is no evidence for acute appendicitis. Trace fl uid within the pelvis is likely physiologic. No suspicious osseous lesions are noted. IMPRESSION: 1. Right lower lobe pulmonary infarct. Right lower lobe pulmonary emboli depicted on the chest CT. Pl ease see that report for further description. Trace right pleural effusion. 2. No urinary calculi or hydronephrosis. 3. No acute process within the abdomen or pelvis on unenhanced exam. 4. No evidence for acute appendicitis. No bowel obstruction. ACT 112: Negative or not required by law. Electronically signed by: Malcolm Stanley M.D. 03/21/2020 7:47 PM
[2020-03-21 19:54] LABS: Cast Urine Automated 0 /lpf (0-5); RBC Urine Automated 0-4 /hpf (0-4)
[2020-03-21 19:55] LABS: Bacteria Urine Automated Negative (Negative)
[2020-03-21] MEDS ORDERED: NITROGLYCERIN SL 0.4 MG/TAB TAB SL PRN (21:17)
[2020-03-21] MEDS ORDERED: MAGNESIUM HYDROXIDE SUSP 30 ML UDC PO PRN (21:17)
[2020-03-21] MEDS ORDERED: ONDANSETRON INJ 2 MG/ML 2 ML VIAL IV PRN (21:17)
[2020-03-21] MEDS ORDERED: ALUMINUM/MAGNESIUM SUSP 30 ML UDC PO PRN (21:17)
[2020-03-21] MEDS ORDERED: POLYETHYLENE (MIRALAX) 17 GM PACK PO PRN (21:17)
--- NOTE | 2020-03-21 21:17 | History & Physical Report ---
Date of Service March 21, 2020 Assessment & Plan (1) Pulmonary embolism and infarction: Presented with right flank pain, elevated d-dimer, CT chest with contrast shows . Several segmental and subsegmental pulmonary emboli within the right lower lobe with resultant 4.1 cm right lower lobe pulmonary infarct. Ordered for hypercoagulable work-up, will start patient with IV heparin weight-based protocol, Patient will need 6-9 months of anticoagulation, can be started on DOAC's ( eliquis ) liver function improves Check echo for right heart strain Monitoring telemetry for evaluation of any arrhythmia Incidental finding of lung nodule 5 mm right lower lobe nodule. This is likely benign . A follow-up chest CT in 6 months to ensure stability is recommended. Tobacco abuse disorder: Smokes half a pack per cigarettes a day, counseling provided of risk of blood clot with ongoing smoking Patient is currently not on any oral contraceptive pills (2) Elevated liver enzymes: CT of abdomen pelvis does not show any hepatobiliary abnormality Patient is status post cholecystectomy Repeat comprehensive metabolic panel in a.m. hepatitis panel-ordered (3) Hypokalemia: Replaced, she denies of any nausea vomiting or diarrhea repeat BMP CODE STATUS: Full code DVT prophylaxis: Heparin therapeutic dose Disposition: Expected to be discharged home when medically stable Patient will benefit with hematology follow-up on discharge History of Present Illness Chief Complaint: Pain on right flank, and right side of the chest Primary Care Provider: Will Mckeon MD This is a 25-year-old female with no significant past medical history, presented to ER with complaint of severe sharp pain on her right lower back and right side of the chest, worse with taking deep breath No fever or chills, no cough, no blood in sputum Reports of dyspnea on exertion, pleuritic chest pain Patient denies of any dizzy spell palpitation, CT chest with contrast shows improved segmental and subtle segmental right-sided pulmonary embolism, causing pulmonary infarction Allergies Allergy/AdvReac Type Severity Reaction Status Date / Time No Known Allergies Allergy Verified 03/21/20 21:09 Home Medications Home Medications Medication Instructions Recorded Confirmed Type Cholestyramine Light 4 g PO QPM 02/06/20 03/21/20 History famotidine 40 mg PO HS 02/06/20 03/21/20 History omeprazole 40 mg PO QAM 02/06/20 03/21/20 History ibuprofen 600 mg PO TID PRN 03/04/20 03/21/20 History acetaminophen-codeine 1 tab PO UD PRN 03/21/20 03/21/20 History [Tylenol-Codeine #3] Past Med/Surg History Medical History Asthma hx, no inhaler GERD (gastroesophageal reflux disease) occasional Obesity PVC (premature ventricular contraction) hx, no recent issues, NSR without arrhythmia on 09/2019 EKG Surgical History History of cardiac radiofrequency ablation approximately 2016 History of section X2 History of cholecystectomy History of colonoscopy History of esophagogastroduodenoscopy (EGD) History of tonsillectomy History of tooth extraction WTE Family History Grandmother (Maternal) Family history of diabetes mellitus Family hx of colon cancer Father Family history of diabetes mellitus Social History Smoking Status: Never smoker Tobacco Type: Cigarettes Cigarettes Per Day: 10 CIGS A DAY (intermittent x few years); Second Hand Exposure: No; Hx Alcohol Use: No Hx Substance Use: No Preferred Language: Croatian Communication Ability: Effective Mouthpiece Maker Required: No Beliefs That Will Affect Care: None marital status: Current Living Situation: Spouse and Family current occupational status: unemployed Feels Safe at Home: Yes Assistive Devices: Glasses Review of Systems Review of Systems: All systems reviewed & are unremarkable except as noted in HPI & below Respiratory: + dyspnea Cardiovascular: + chest pain Physical Exam Constitutional: WD/WN, vitals as above Eyes: PERRL, conjunctivae normal, anicteric sclerae ENMT: external ear and nose normal, oropharynx normal Neck: trachea midline, no thyromegaly Respiratory: normal respiratory effort, lungs clear to auscultation Cardiovascular: RRR, no murmur, no edema Gastrointestinal (Abdomen): normal bowel sounds, soft, nontender, no hepatosplenomegaly Musculoskeletal: no cyanosis or clubbing, extremities motor strength 5/5 Skin: no rashes, warm and dry Neurologic: PERRL, EOMI, accommodation nl, no face palsy, no dysarthria Psychiatric: A+Ox3, euthymic affect Results & Data Results & Data ([place]) Vital Signs (Past 12 Hours) Vital Signs Temp Pulse Resp BP BP Pulse Ox 03/21/20 20:04 142/91 H 03/21/20 18:10 37.2 C 105 H 20 125/[address] chest with contrast: IMPRESSION: 1. Several segmental and subsegmental pulmonary emboli within the right lower lobe with resultant 4.1 cm right lower lobe pulmonary infarct. 2. 5 mm right lower lobe nodule. This is likely benign. A follow-up chest CT in 6 months to ensure stability is recommended.
[2020-03-21] MEDS ORDERED: POTASSIUM CHLORIDE CRTAB 20 MEQ TABCR PO STA (21:24)
[2020-03-21 21:28] LABS: Partial Thromboplastin Ratio 1.1; Partial Thromboplastin Time 29.4 Seconds (21.0-31.0)
[2020-03-21] MEDS ORDERED: HEPARIN IV BOLUS 5,000 UNITS in SYRINGE 0 ML IV ONE (22:45)
[2020-03-21] MEDS ORDERED: MoRPHine SULFATE 2 MG/ML CARP IV PRN (23:05)
[2020-03-21] MEDS: HEPARIN SODIUM/DEXTROSE 25,000 UNITS/500 ML BAG IV SCH (23:35)
[2020-03-22] MEDS: NICOTINE 21 MG/24 HR TDSY TD SCH (01:06)
[2020-03-22] MEDS ORDERED: KETOROLAC TROMETHAMINE 15 MG/ML VIAL IV ONE (05:00)
[2020-03-22] MEDS ORDERED: NORMOSOL-R 1,000 ML IV ONE (05:02)
[2020-03-22] MEDS: oxyCODONE HCL IR 5 MG TAB (IMMEDIATE RELEASE) PO PRN ×4 (05:39→21:11)
[2020-03-22 06:24] LABS: Basophils # (auto) 0.02 K/uL (0-0.2); Basophils % (auto) 0.3 %; Eosinophils # (auto) 0.22 K/uL (0-0.5); Eosinophils % (auto) 3.1 %; Hematocrit (blood only) 32.5 % (37-47); Hemoglobin 10.5 g/dL (12.0-16.0); Immature Granulocytes # (auto) 0.01 K/uL (0.00-0.02); Immature Granulocytes % (auto) 0.1 %; Lymphocytes # (auto) 2.67 K/uL (1.2-3.4); Lymphocytes % (auto) 37.7 %; Mean Corpuscular Hemoglobin 28.3 pg (25-34); Mean Corpuscular Hgb Conc 32.3 g/dL (32-36); Mean Corpuscular Volume 87.6 fL (80-100); Mean Platelet Volume 9.2 fL (7.4-10.4); Monocytes # (auto) 0.65 K/uL (0.11-0.59); Monocytes % (auto) 9.2 %; Neutrophils # (auto) 3.52 K/uL (1.4-6.5); Neutrophils % (auto) 49.6 %; Platelet Count 244 K/uL (130-400); Red Blood Count 3.71 M/uL (4.2-5.4); White Blood Count 7.09 K/uL (4.8-10.8)
[2020-03-22] MEDS: LIDOCAINE 5% 1 PATCH TD SCH (06:26)
[2020-03-22 06:45] LABS: Partial Thromboplastin Ratio 2.2
[2020-03-22 06:52] LABS: BUN Creatinine Ratio 11.6 (10-20); Calcium 8.4 mg/dl (8.5-10.1); Creatinine Clr Calc Pharmacy 137.1 ml/min; Magnesium 2.1 mg/dl (1.8-2.4); Potassium 3.8 mmol/L (3.5-5.1)
[2020-03-22 07:06] LABS: Partial Thromboplastin Time 62.6 Seconds (21.0-31.0)
[2020-03-22] MEDS: PANTOprazole 40 MG TAB PO SCH (08:28)
--- NOTE | 2020-03-22 08:53 | Ultrasound Report ---
BILATERAL LOWER EXTREMITY VENOUS DOPPLER CLINICAL HISTORY: bilateral PE eval for DVT COMPARISON STUDY: No previous studies for comparison. TECHNIQUE: Sonography of the deep venous system of the bilateral lower extremities was performed. Co mpression and augmentation were evaluated. FINDINGS: The bilateral common femoral, superficial femoral and popliteal veins were compressible. A ugmentation was normal. Flow was shown within the deep calf vessels. IMPRESSION: No evidence of deep venous thrombus within the bilateral lower extremities. ACT 112: Negative or not required by law. Electronically signed by: Malcolm Stanley M.D. 03/22/2020 8:51 AM
--- NOTE | 2020-03-22 12:25 | Electrocardiogram Report ---
Test Reason : Blood Pressure : / mmHG Vent. Rate : 064 BPM Atrial Rate : 064 BPM P-R Int : 174 ms QRS Dur : 082 ms QT Int : 450 ms P-R-T Axes : 050 058 053 degrees QTc Int : 464 ms Normal sinus rhythm with sinus arrhythmia Normal ECG When compared with ECG of 04-MAR-2020 14:35, Vent. rate has decreased BY 33 BPM Confirmed by Dangelo Dorman ([id number]) on 03/22/2020 12:25:18 PM Referred By: REFERRED SELF Confirmed By:Dangelo Dorman
[2020-03-22 14:11] LABS: Hematocrit (blood only) 34.3 % (37-47); Hemoglobin 11.5 g/dL (12.0-16.0)
--- NOTE | 2020-03-22 14:13 | XRay Report ---
SINGLE VIEW CHEST CLINICAL HISTORY: Pulmonary emboli. FINDINGS: An AP, portable, upright chest radiograph is compared to study dated 09/15/2019 and correlate d with chest CT dated 03/21/2020. The cardiomediastinal silhouette is unremarkable. Dependent airspac e opacities likely represent atelectasis. No large pleural effusion or pneumothorax is seen. The bony thorax is grossly intact. IMPRESSION: Dependent airspace opacities likely represent atelectasis. ACT 112: Negative or not required by law. Electronically signed by: Sekou Ruelas M.D. 03/22/2020 2:12 PM
[2020-03-22 14:28] LABS: Albumin Level 3.1 gm/dl (3.4-5.0); BUN Creatinine Ratio 7.6 (10-20); Est GFR (African American) 105.8; Est GFR (Non-African American) 91.3; Potassium 3.6 mmol/L (3.5-5.1)
[2020-03-22 14:33] LABS: Albumin Globulin Ratio 0.9 (0.9-2); Bilirubin,Total 0.4 mg/dl (0.2-1); Globulin 3.5 gm/dl (2.5-4.0); Total Protein 6.6 gm/dl (6.4-8.2)
[2020-03-22] MEDS: MoRPHine SULFATE 4 MG/ML 1 ML CARP\\VIAL IV PRN (16:12)
[2020-03-22] MEDS ORDERED: Nursing to Pharmacy Communication SCH (17:00)
[2020-03-22] MEDS: diphenhydrAMINE Capsule 25 MG CAP PO PRN (18:02)
[2020-03-22] MEDS: FAMOTIDINE 40 MG TABLET PO SCH (21:05)
[2020-03-22] MEDS: CHOLESTYRAMINE LIGHT 4 GM PKT PO SCH (21:05)
[2020-03-22] MEDS: HEPARIN SODIUM/DEXTROSE 25,000 UNITS/500 ML BAG IV SCH (21:09)
[2020-03-23 06:51] LABS: Hematocrit (blood only) 34.5 % (37-47); Hemoglobin 11.7 g/dL (12.0-16.0); Mean Corpuscular Hemoglobin 29.5 pg (25-34); Mean Corpuscular Hgb Conc 33.9 g/dL (32-36); Mean Corpuscular Volume 87.1 fL (80-100); Mean Platelet Volume 10.1 fL (7.4-10.4); Platelet Count 253 K/uL (130-400); RDW Coefficient of Variation 13.9 % (11.5-14.5); RDW Standard Deviation 44.7 fL (36.4-46.3); Red Blood Count 3.96 M/uL (4.2-5.4); White Blood Count 7.34 K/uL (4.8-10.8)
[2020-03-23 07:11] LABS: Partial Thromboplastin Ratio 1.4; Partial Thromboplastin Time 40.1 Seconds (21.0-31.0)
[2020-03-23 07:26] LABS: Albumin Level 3.1 gm/dl (3.4-5.0); BUN Creatinine Ratio 9.2 (10-20); Calcium 9.2 mg/dl (8.5-10.1); Creatinine Clr Calc Pharmacy 104.5 ml/min; Est GFR (African American) 118.8; Est GFR (Non-African American) 102.5; Potassium 3.9 mmol/L (3.5-5.1)
[2020-03-23 07:29] LABS: Albumin Globulin Ratio 0.9 (0.9-2); Bilirubin,Total 0.5 mg/dl (0.2-1); Globulin 3.5 gm/dl (2.5-4.0); Total Protein 6.6 gm/dl (6.4-8.2)
[2020-03-23] MEDS ORDERED: HEPARIN IV BOLUS 5,000 UNITS in SYRINGE 0 ML IV ONE (07:30)
[2020-03-23] MEDS: oxyCODONE HCL IR 5 MG TAB (IMMEDIATE RELEASE) PO PRN ×3 (07:41→21:55)
[2020-03-23] MEDS: PANTOprazole 40 MG TAB PO SCH (07:41)
[2020-03-23] MEDS: LIDOCAINE 5% 1 PATCH TD SCH (07:42)
[2020-03-23] MEDS: NICOTINE 21 MG/24 HR TDSY TD SCH (07:43)
--- NOTE | 2020-03-23 08:29 | Hospitalist Progress Note ---
Date of Service March 22, 2020 Assessment & Plan (1) Pulmonary embolism and infarction: Presented with right flank pain, elevated d-dimer, CT chest with contrast shows Several segmental and subsegmental pulmonary emboli within the right lower lobe with resultant 4.1 cm right lower lobe pulmonary infarct. Ordered for hypercoagulable work-up, Started patient on IV heparin weight-based protocol,on admission Patient will need 6-9 months of anticoagulation, can be started on DOAC's ( eliquis ) when liver function improves Echo obtained to eval for for right heart strain Monitoring telemetry for evaluation of any arrhythmia Incidental finding of lung nodule 5 mm right lower lobe nodule. This is likely benign A follow-up chest CT in 6 months to ensure stability is recommended. Tobacco abuse disorder Smokes half a pack per cigarettes a day, counseling provided of risk of blood clot with ongoing smoking Patient is currently not on any oral contraceptive pills (2) Elevated liver enzymes: CT of abdomen pelvis does not show any hepatobiliary abnormality Patient is status post cholecystectomy Monitor comprehensive metabolic panel hepatitis panel-ordered (3) Hypokalemia: Replaced, she denies of any nausea vomiting or diarrhea repeat BMP replete and monitor as needed CODE STATUS: Full code DVT prophylaxis: Heparin therapeutic dose Disposition: Expected to be discharged home when medically stable Patient will benefit with hematology follow-up on discharge Admission and Anticipated Discharge Date Admission Date: March 21, 2020 Subjective Patient is sitting up in bed, continues to complain of right flank /right lower chest pain. No difficulty breathing. No fevers or chills. Also denies any dizziness or lightheadedness. Hemoglobin down to around 10, will repeat. We will also obtain chest x-ray. Pt's father at the bedside. Review of Systems Review of Systems: All systems reviewed & are unremarkable except as noted in HPI & below Constitutional: no fever and no chills Respiratory: no cough and no dyspnea Cardiovascular: + chest pain (Right lower chest/right flank pain); no palpitations Gastrointestinal: no abdominal pain, no nausea and no vomiting Genitourinary: no dysuria Physical Exam Physical Exam: Constitutional: Young female lying in bed, in no acute distress, however somewhat uncomfortable due to pain,WD/WN, vitals as above Eyes: PERRL, EOMI, conjunctivae normal, anicteric sclerae ENMT: external ear and nose normal, oropharynx normal Neck: trachea midline, no thyromegaly Respiratory: normal respiratory effort, lungs clear to auscultation Cardiovascular: RRR, no murmur, no edema Chest: Right lower chest/right flank pain to palpation Gastrointestinal (Abdomen): normal bowel sounds, soft, nontender Musculoskeletal: no cyanosis or clubbing, extremities motor strength 5/5, moves all extremities Skin: no rashes, warm and dry Neurologic: PERRL, EOMI, accommodation nl, no face palsy, no dysarthria Psychiatric: A+Ox3, euthymic affect Results & Data Results & Data ([facility]) Vital Signs (Past 12 Hours) Vital Signs Temp Pulse Pulse Resp BP Pulse Ox 03/22/20 23:05 37.5 C 86 19 108/72 91 03/22/20 22:20 79
[2020-03-23] MEDS ORDERED: POTASSIUM CHLORIDE CRTAB 20 MEQ TABCR PO STA (08:39)
--- NOTE | 2020-03-23 08:39 | Hospitalist Progress Note ---
Date of Service March 23, 2020 Assessment & Plan (1) Pulmonary embolism and infarction: Presented with right flank pain, elevated d-dimer, CT chest with contrast shows Several segmental and subsegmental pulmonary emboli within the right lower lobe with resultant 4.1 cm right lower lobe pulmonary infarct. Ordered for hypercoagulable work-up, Started patient on IV heparin weight-based protocol,on admission Patient will need 6-9 months of anticoagulation, can be started on DOAC's ( eliquis ) when liver function improves Echo obtained to al for for right heart strain Monitoring telemetry for evaluation of any arrhythmia Patient continues to have significant pain in her right lower chest/flank area, complains of dizziness today Incidental finding of lung nodule 5 mm right lower lobe nodule. This is likely benign A follow-up chest CT in 6 months to ensure stability is recommended. Tobacco abuse disorder Smokes half a pack per cigarettes a day, counseling provided of risk of blood clot with ongoing smoking Patient is currently not on any oral contraceptive pills (2) Elevated liver enzymes: CT of abdomen pelvis does not show any hepatobiliary abnormality Patient is status post cholecystectomy Monitor comprehensive metabolic panel hepatitis panel-ordered (3) Hypokalemia: Replaced, she denies of any nausea vomiting or diarrhea repeat BMP replete and monitor as needed CODE STATUS: Full code DVT prophylaxis: Heparin therapeutic dose Disposition: Expected to be discharged home when medically stable Patient will benefit with hematology follow-up on discharge Admission and Anticipated Discharge Date Admission Date: March 21, 2020 Subjective Patient is sitting up in bed, continues to complain of right flank /right lower chest pain. No difficulty breathing. No fevers or chills. Patient reports dizziness when getting up from bed. Blood pressure on the lower side. Patient requiring pain medications for right flank/right chest pain Hemoglobin stable this morning. Patient is complaining of constipation. Review of Systems Review of Systems: All systems reviewed & are unremarkable except as noted in HPI & below Constitutional: no fever and no chills Respiratory: + pain on inspiration; no cough and no dyspnea Cardiovascular: + chest pain (Right lower chest/right flank pain); no palpitations Gastrointestinal: + constipation; no abdominal pain, no nausea and no vomiting Physical Exam Physical Exam: Constitutional: Young female lying in bed, in no respiratory distress, however uncomfortable due to pain,WD/WN, vitals as above Eyes: PERRL, EOMI, conjunctivae normal, anicteric sclerae ENMT: external ear and nose normal, oropharynx normal Neck: trachea midline, no thyromegaly Respiratory: normal respiratory effort, lungs clear to auscultation Cardiovascular: RRR, no murmur, no edema Chest: Right lower chest/right flank pain to palpation Gastrointestinal (Abdomen): normal bowel sounds, soft, nontender Musculoskeletal: no cyanosis or clubbing, extremities motor strength 5/5, moves all extremities Skin: no rashes, warm and dry Neurologic: PERRL, EOMI, accommodation nl, no face palsy, no dysarthria Psychiatric: A+Ox3, euthymic affect Results & Data Results & Data ([facility]) Vital Signs (Past 12 Hours) Vital Signs Temp Pulse Pulse Resp BP Pulse Ox 03/23/20 07:53 37.4 C 92 H 18 93/62 L 95 03/23/20 07:24 77 03/23/20 03:33 37.5 C 99 H 18 110/67 94 03/22/20 23:05 37.5 C 86 19 108/72 91 03/22/20 22:20 79 Laboratory Results 03/23/20 03/23/20 03/23/20 Range/Units 06:11 06:07 06:07 WBC 7.34 (4.8-10.8) K/uL RBC 3.96 L (4.2-5.4) M/uL Hgb 11.7 L (12.0-16.0) g/dL Hct 34.5 L (37-47) % MCV 87.1 (80-100) fL MCH 29.5 (25-34) pg MCHC 33.9 (32-36) g/dL RDW Std Deviation 44.7 (36.4-46.3) fL RDW Coeff of Fritz 13.9 (11.5-14.5) % Plt Count 253 (130-400) K/uL MPV 10.1 (7.4-10.4) fL APTT 40.1 H (21.0-31.0) Seconds PTT Ratio 1.4 Sodium 140 (136-145) mmol/L Potassium 3.9 (3.5-5.1) mmol/L Chloride 108 H (98-107) mmol/L Carbon Dioxide 25 (21-32) mmol/L Anion Gap 7.0 (3-11) BUN 7 (7-18) mg/dl Creatinine 0.80 (0.6-1.2) mg/dl Est Cr Clr Drug Dosing 104.5 ml/min Est GFR ( Amer) 118.8 Est GFR (Non-Af Amer) 102.5 BUN/Creatinine Ratio 9.2 L (10-20) Glucose 88 (70-99) mg/dl Calcium 9.2 (8.5-10.1) mg/dl Total Bilirubin 0.5 (0.2-1) mg/dl AST 70 H (15-37) U/L ALT 172 H (12-78) U/L Alkaline Phosphatase 163 H (45-117) U/L Total Protein 6.6 (6.4-8.2) gm/dl Albumin 3.1 L (3.4-5.0) gm/dl Globulin 3.5 (2.5-4.0) gm/dl Albumin/Globulin Ratio 0.9 (0.9-2) 03/22/20 03/22/20 Range/Units 13:57 13:57 WBC (4.8-10.8) K/uL RBC (4.2-5.4) M/uL Hgb 11.5 L (12.0-16.0) g/dL Hct 34.3 L (37-47) % MCV (80-100) fL MCH (25-34) pg MCHC (32-36) g/dL RDW Std Deviation (36.4-46.3) fL RDW Coeff of Fritz (11.5-14.5) % Plt Count (130-400) K/uL MPV (7.4-10.4) fL APTT (21.0-31.0) Seconds PTT Ratio Sodium 142 (136-145) mmol/L Potassium 3.6 (3.5-5.1) mmol/L Chloride 109 H (98-107) mmol/L Carbon Dioxide 25 (21-32) mmol/L Anion Gap 8.0 (3-11) BUN 7 (7-18) mg/dl Creatinine 0.88 (0.6-1.2) mg/dl Est Cr Clr Drug Dosing 95.0 ml/min Est GFR ( Amer) 105.8 Est GFR (Non-Af Amer) 91.3 BUN/Creatinine Ratio 7.6 L (10-20) Glucose 83 (70-99) mg/dl Calcium 9.0 (8.5-10.1) mg/dl Total Bilirubin 0.4 D (0.2-1) mg/dl AST 136 H (15-37) U/L ALT 230 H (12-78) U/L Alkaline Phosphatase 186 H (45-117) U/L Total Protein 6.6 (6.4-8.2) gm/dl Albumin 3.1 L (3.4-5.0) gm/dl Globulin 3.5 (2.5-4.0) gm/dl Albumin/Globulin Ratio 0.9 (0.9-2) Medications Administered Current Inpatient Medications Acetaminophen (Acetaminophen 325 Mg Tab) 650 mg PO Q4H PRN PRN Reason: Pain or Fever Stop: 04/20/20 21:16 Al Hydrox/Mg Hydrox/Simethicone (Aluminum/Magnesium Susp 30 Ml Udc) 15 ml PO Q4H PRN PRN Reason: Dyspepsia Stop: 04/20/20 21:16 Cholestyramine Resin (Cholestyramine Light 4 Gm Pkt) 4 gm PO DAILY@2200 [facility] Stop: 04/21/20 21:59 Last Admin: 03/22/20 21:05 Dose: Not Given Documented by: Diphenhydramine HCl (Diphenhydramine Hcl 25 Mg Cap) 25 mg PO Q4H PRN PRN Reason: ITCHINESS Stop: 04/21/20 16:51 Last Admin: 03/22/20 18:02 Dose: 25 mg Documented by: Famotidine (Famotidine 40 Mg Tablet) 40 mg PO HS [facility] Stop: 04/21/20 20:59 Last Admin: 03/22/20 21:05 Dose: 40 mg Documented by: Heparin Sodium/Dextrose (Heparin Sodium/Dextrose) 25,000 units in 500 mls @ 27 mls/hr IV .[id number] [facility]; Protocol Stop: 04/20/20 21:59 Last Titration: 03/23/20 07:36 Dose: 1,350 units/hr, 27 mls/hr Documented by: Lidocaine (Lidocaine 5% 1 Patch) 1 patch TD QAM [facility] Stop: 04/21/20 05:59 Last Admin: 03/23/20 07:42 Dose: Not Given Documented by: Magnesium Hydroxide (Magnesium Hydroxide Susp 30 Ml Udc) 30 ml PO Q12H PRN PRN Reason: Constipation Stop: 04/20/20 21:16 Miscellaneous (Remove Nicoderm Patch) 1 ea N/A DAILY@0859 [facility] Stop: 04/21/20 08:58 Last Admin: 03/23/20 07:43 Dose: 1 ea Documented by: Miscellaneous (Remove Lidoderm Patch) 1 ea N/A HS [facility] Stop: 04/21/20 17:59 Last Admin: 03/23/20 08:38 Dose: Not Given Documented by: Morphine Sulfate (Morphine Sulfate 4 Mg/Ml 1 Ml Carp\Vial) 4 mg IV Q4 PRN PRN Reason: Pain Stop: 04/04/20 23:04 Last Admin: 03/22/20 16:12 Dose: 4 mg Documented by: Nicotine (Nicotine 21 Mg/24 Hr Tdsy) [facility] Stop: 04/21/20 00:29 Last Admin: 03/23/20 07:43 Dose: 21 mg Documented by: Ondansetron HCl (Ondansetron Inj 2 Mg/Ml 2 Ml Vial) 4 mg IV Q6H PRN PRN Reason: Nausea Stop: 04/20/20 21:16 Oxycodone HCl (Oxycodone Hcl Ir 5 Mg Tab (Immediate Release)) 5 - 10 mg PO QID PRN PRN Reason: Pain Stop: 04/05/20 04:59 Last Admin: 03/23/20 07:41 Dose: 10 mg Documented by: Pantoprazole Sodium (Pantoprazole 40 Mg Tab) 40 mg PO QAM [facility] Stop: 04/21/20 08:59 Last Admin: 03/23/20 07:41 Dose: 40 mg Documented by: Polyethylene Glycol (Polyethylene (Miralax) 17 Gm Pack) 17 gm PO DAILY PRN PRN Reason: Constipation Stop: 04/20/20 21:16
[2020-03-23] MEDS ORDERED: SENNA 8.6 MG TAB PO SCH (10:00)
[2020-03-23] MEDS ORDERED: POLYETHYLENE (MIRALAX) 17 GM PACK PO SCH (10:00)
[2020-03-23 14:49] LABS: Partial Thromboplastin Ratio 2.7
[2020-03-23 15:15] LABS: Partial Thromboplastin Time 75.1 Seconds (21.0-31.0)
--- NOTE | 2020-03-23 15:35 | Electrocardiogram Report ---
Test Reason : Blood Pressure : / mmHG Vent. Rate : 091 BPM Atrial Rate : 091 BPM P-R Int : 172 ms QRS Dur : 084 ms QT Int : 394 ms P-R-T Axes : 050 041 049 degrees QTc Int : 484 ms Normal sinus rhythm Nonspecific T wave abnormality Prolonged QT Abnormal ECG When compared with ECG of 04-MAR-2020 14:35, No significant change was found Confirmed by Dangelo Dorman ([id number]) on 03/23/2020 3:35:30 PM Referred By: REFERRED SELF Confirmed By:Dangelo Dorman
[2020-03-23] MEDS: HEPARIN SODIUM/DEXTROSE 25,000 UNITS/500 ML BAG IV SCH (15:37)
[2020-03-23] MEDS ORDERED: oxyCODONE HCL IR 5 MG TAB (IMMEDIATE RELEASE) PO STA (15:48)
--- NOTE | 2020-03-23 16:06 | Electrocardiogram Report ---
Test Reason : Blood Pressure : / mmHG Vent. Rate : 090 BPM Atrial Rate : 090 BPM P-R Int : 158 ms QRS Dur : 084 ms QT Int : 364 ms P-R-T Axes : 058 055 054 degrees QTc Int : 445 ms Normal sinus rhythm Nonspecific T wave abnormality Abnormal ECG When compared with ECG of 22-MAR-2020 07:17, No significant change was found Confirmed by Dangelo Dorman ([id number]) on 03/23/2020 4:06:27 PM Referred By: REFERRED SELF Confirmed By:Dangelo Dorman
[2020-03-23] MEDS ORDERED: MoRPHine SULFATE 2 MG/ML CARP IV STA (16:43)
[2020-03-23] MEDS ORDERED: SODIUM CHLORIDE 0.9% 1000ML 1,000 ML IV SCH (17:00)
[2020-03-23] MEDS ORDERED: SODIUM CHLORIDE 0.9% 500 ML IV SCH (17:00)
[2020-03-23 17:24] LABS: Hematocrit (blood only) 35.7 % (37-47); Hemoglobin 11.9 g/dL (12.0-16.0)
[2020-03-23] MEDS: POLYETHYLENE (MIRALAX) 17 GM PACK PO SCH (21:46)
[2020-03-23] MEDS: SENNA 8.6 MG TAB PO SCH (21:47)
[2020-03-23] MEDS: CHOLESTYRAMINE LIGHT 4 GM PKT PO SCH (21:47)
[2020-03-23] MEDS: FAMOTIDINE 40 MG TABLET PO SCH (21:47)
[2020-03-23 22:22] LABS: Partial Thromboplastin Ratio 1.9
[2020-03-23 22:28] LABS: Partial Thromboplastin Time 54.1 Seconds (21.0-31.0)
[2020-03-24] MEDS: MoRPHine SULFATE 2 MG/ML CARP IV PRN ×2 (00:55→15:59)
[2020-03-24] MEDS: diphenhydrAMINE Capsule 25 MG CAP PO PRN (00:59)
[2020-03-24 02:52] LABS: Hepatitis A Antibody IgM NON-REACTIVE (NON-REACTIVE); Hepatitis B Core Antibody IgM NON-REACTIVE (NON-REACTIVE)
[2020-03-24 06:03] LABS: Hematocrit (blood only) 34.7 % (37-47); Hemoglobin 11.4 g/dL (12.0-16.0); Mean Corpuscular Hemoglobin 28.8 pg (25-34); Mean Corpuscular Hgb Conc 32.9 g/dL (32-36); Mean Corpuscular Volume 87.6 fL (80-100); Mean Platelet Volume 9.7 fL (7.4-10.4); Platelet Count 268 K/uL (130-400); RDW Coefficient of Variation 13.7 % (11.5-14.5); RDW Standard Deviation 43.8 fL (36.4-46.3); Red Blood Count 3.96 M/uL (4.2-5.4)
[2020-03-24 06:26] LABS: Partial Thromboplastin Ratio 2.2
[2020-03-24 06:27] LABS: Basophils # (auto) 0.01 K/uL (0-0.2); Basophils % (auto) 0.2 %; Eosinophils # (auto) 0.21 K/uL (0-0.5); Eosinophils % (auto) 3.3 %; Immature Granulocytes # (auto) 0.02 K/uL (0.00-0.02); Immature Granulocytes % (auto) 0.3 %; Lymphocytes # (auto) 3.35 K/uL (1.2-3.4); Lymphocytes % (auto) 53.2 %; Monocytes # (auto) 0.62 K/uL (0.11-0.59); Monocytes % (auto) 9.8 %; Neutrophils # (auto) 2.09 K/uL (1.4-6.5); Neutrophils % (auto) 33.2 %
[2020-03-24 06:30] LABS: Albumin Level 3.1 gm/dl (3.4-5.0); BUN Creatinine Ratio 11.2 (10-20); Creatinine Clr Calc Pharmacy 114.4 ml/min; Est GFR (African American) 132.7; Est GFR (Non-African American) 114.5; Potassium 4.2 mmol/L (3.5-5.1)
[2020-03-24 06:31] LABS: Partial Thromboplastin Time 62.7 Seconds (21.0-31.0)
[2020-03-24 06:33] LABS: Albumin Globulin Ratio 0.9 (0.9-2); Bilirubin,Total 0.3 mg/dl (0.2-1); Globulin 3.6 gm/dl (2.5-4.0); Total Protein 6.7 gm/dl (6.4-8.2)
[2020-03-24] MEDS: NICOTINE 21 MG/24 HR TDSY TD SCH (08:32)
[2020-03-24] MEDS: SENNA 8.6 MG TAB PO SCH ×2 (08:34→20:56)
[2020-03-24] MEDS: POLYETHYLENE (MIRALAX) 17 GM PACK PO SCH ×2 (08:34→20:56)
[2020-03-24] MEDS: LIDOCAINE 5% 1 PATCH TD SCH (08:34)
--- NOTE | 2020-03-24 08:38 | Hospitalist Progress Note ---
Date of Service March 24, 2020 Assessment & Plan (1) Pulmonary embolism and infarction: Presented with right flank pain, elevated d-dimer, CT chest with contrast shows Several segmental and subsegmental pulmonary emboli within the right lower lobe with resultant 4.1 cm right lower lobe pulmonary infarct. Ordered for hypercoagulable work-up, Started patient on IV heparin weight-based protocol,on admission Patient will need 6-9 months of anticoagulation, can be started on DOAC's ( eliquis ) when liver function improves Echo obtained to eval for for right heart strain Monitoring telemetry for evaluation of any arrhythmia Patient has significant pain in her right lower chest/flank area, now pain better controlled, Hemoglobin remains stable Incidental finding of lung nodule 5 mm right lower lobe nodule. This is likely benign A follow-up chest CT in 6 months to ensure stability is recommended. Tobacco abuse disorder Smokes half a pack per cigarettes a day, counseling provided of risk of blood clot with ongoing smoking Patient is currently not on any oral contraceptive pills (2) Elevated liver enzymes: CT of abdomen pelvis does not show any hepatobiliary abnormality Patient is status post cholecystectomy Monitor comprehensive metabolic panel hepatitis panel-ordered (3) Hypokalemia: Replaced, she denies of any nausea vomiting or diarrhea repeat BMP replete and monitor as needed CODE STATUS: Full code DVT prophylaxis: Heparin therapeutic dose Disposition: Expected to be discharged home when medically stable Patient will benefit with hematology follow-up on discharge Admission and Anticipated Discharge Date Admission Date: March 21, 2020 Subjective Patient is laying in bed, in no acute distress. States that right flank/right chest pain is better controlled now however it still bothers her quite a bit with movement or deep inspiration. She says that her breathing is better though. Denies fevers, chills, abdominal pain, nausea or vomiting. Review of Systems Review of Systems: All systems reviewed & are unremarkable except as noted in HPI & below Constitutional: no fever and no chills Respiratory: + pain on inspiration; no cough and no dyspnea Cardiovascular: + chest pain (Right lower chest/right flank pain); no palpitations Gastrointestinal: no nausea and no vomiting Physical Exam Physical Exam: Constitutional: Young female lying in bed, in no respiratory distress, however somewhat uncomfortable due to pain,WD/WN, vitals as above Eyes: PERRL, EOMI, conjunctivae normal, anicteric sclerae ENMT: external ear and nose normal, oropharynx normal Neck: trachea midline, no thyromegaly Respiratory: normal respiratory effort, lungs clear to auscultation Cardiovascular: RRR, no murmur, no edema Chest: Right lower chest/right flank pain to palpation Gastrointestinal (Abdomen): normal bowel sounds, soft, nontender Musculoskeletal: no cyanosis or clubbing, extremities motor strength 5/5, moves all extremities Skin: no rashes, warm and dry Neurologic: PERRL, EOMI, accommodation nl, no face palsy, no dysarthria Psychiatric: A+Ox3, euthymic affect Results & Data Results & Data ([facility]) Vital Signs (Past 12 Hours) Vital Signs Temp Pulse Pulse Resp BP Pulse Ox 03/24/20 07:26 57 L 03/24/20 07:22 36.6 C 71 18 108/70 97 03/24/20 03:19 36.5 C 63 14 96/64 L 98 03/24/20 01:05 87 03/24/20 00:51 103 H 116/82 03/24/20 00:48 90 114/75 03/23/20 23:16 37.1 C 83 15 109/76 97 03/23/20 22:42 87 Laboratory Results 03/24/20 03/24/20 03/24/20 Range/Units 05:38 05:38 05:38 WBC 6.30 (4.8-10.8) K/uL RBC 3.96 L (4.2-5.4) M/uL Hgb 11.4 L (12.0-16.0) g/dL Hct 34.7 L (37-47) % MCV 87.6 (80-100) fL MCH 28.8 (25-34) pg MCHC 32.9 (32-36) g/dL RDW Std Deviation 43.8 (36.4-46.3) fL RDW Coeff of Fritz 13.7 (11.5-14.5) % Plt Count 268 (130-400) K/uL MPV 9.7 (7.4-10.4) fL Immature Gran % (Auto) 0.3 % Neut % (Auto) 33.2 % Lymph % (Auto) 53.2 % Gaines % (Auto) 9.8 % Eos % (Auto) 3.3 % Baso % (Auto) 0.2 % Neut # (Auto) 2.09 (1.4-6.5) K/uL Lymph # (Auto) 3.35 (1.2-3.4) K/uL Gaines # (Auto) 0.62 H (0.11-0.59) K/uL Eos # (Auto) 0.21 (0-0.5) K/uL Baso # (Auto) 0.01 (0-0.2) K/uL Immature Gran # (Auto) 0.02 (0.00-0.02) K/uL APTT 62.7 H* (21.0-31.0) Seconds PTT Ratio 2.2 Sodium 139 (136-145) mmol/L Potassium 4.2 (3.5-5.1) mmol/L Chloride 109 H (98-107) mmol/L Carbon Dioxide 27 (21-32) mmol/L Anion Gap 3.0 (3-11) BUN 8 (7-18) mg/dl Creatinine 0.73 (0.6-1.2) mg/dl Est Cr Clr Drug Dosing 114.4 ml/min Est GFR ( Amer) 132.7 Est GFR (Non-Af Amer) 114.5 BUN/Creatinine Ratio 11.2 (10-20) Glucose 86 (70-99) mg/dl Calcium 9.0 (8.5-10.1) mg/dl Total Bilirubin 0.3 (0.2-1) mg/dl AST 27 (15-37) U/L ALT 118 H (12-78) U/L Alkaline Phosphatase 147 H (45-117) U/L Total Protein 6.7 (6.4-8.2) gm/dl Albumin 3.1 L (3.4-5.0) gm/dl Globulin 3.6 (2.5-4.0) gm/dl Albumin/Globulin Ratio 0.9 (0.9-2) Hepatitis A IgM Ab (NON-REACTIVE) Hep B Core IgM Ab (NON-REACTIVE) Hepatitis C Ab (EIA) (NON-REACTIVE) Hep C Ab Signal/Cutoff (<1.00) 03/23/20 03/23/20 03/23/20 Range/Units 21:43 17:09 14:06 WBC (4.8-10.8) K/uL RBC (4.2-5.4) M/uL Hgb 11.9 L (12.0-16.0) g/dL Hct 35.7 L (37-47) % MCV (80-100) fL MCH (25-34) pg MCHC (32-36) g/dL RDW Std Deviation (36.4-46.3) fL RDW Coeff of Fritz (11.5-14.5) % Plt Count (130-400) K/uL MPV (7.4-10.4) fL Immature Gran % (Auto) % Neut % (Auto) % Lymph % (Auto) % Gaines % (Auto) % Eos % (Auto) % Baso % (Auto) % Neut # (Auto) (1.4-6.5) K/uL Lymph # (Auto) (1.2-3.4) K/uL Gaines # (Auto) (0.11-0.59) K/uL Eos # (Auto) (0-0.5) K/uL Baso # (Auto) (0-0.2) K/uL Immature Gran # (Auto) (0.00-0.02) K/uL APTT 54.1 H* 75.1 H* (21.0-31.0) Seconds PTT Ratio 1.9 2.7 Sodium (136-145) mmol/L Potassium (3.5-5.1) mmol/L Chloride (98-107) mmol/L Carbon Dioxide (21-32) mmol/L Anion Gap (3-11) BUN (7-18) mg/dl Creatinine (0.6-1.2) mg/dl Est Cr Clr Drug Dosing ml/min Est GFR ( Amer) Est GFR (Non-Af Amer) BUN/Creatinine Ratio (10-20) Glucose (70-99) mg/dl Calcium (8.5-10.1) mg/dl Total Bilirubin (0.2-1) mg/dl AST (15-37) U/L ALT (12-78) U/L Alkaline Phosphatase (45-117) U/L Total Protein (6.4-8.2) gm/dl Albumin (3.4-5.0) gm/dl Globulin (2.5-4.0) gm/dl Albumin/Globulin Ratio (0.9-2) Hepatitis A IgM Ab (NON-REACTIVE) Hep B Core IgM Ab (NON-REACTIVE) Hepatitis C Ab (EIA) (NON-REACTIVE) Hep C Ab Signal/Cutoff (<1.00) 03/21/20 Range/Units 21:32 WBC (4.8-10.8) K/uL RBC (4.2-5.4) M/uL Hgb (12.0-16.0) g/dL Hct (37-47) % MCV (80-100) fL MCH (25-34) pg MCHC (32-36) g/dL RDW Std Deviation (36.4-46.3) fL RDW Coeff of Fritz (11.5-14.5) % Plt Count (130-400) K/uL MPV (7.4-10.4) fL Immature Gran % (Auto) % Neut % (Auto) % Lymph % (Auto) % Gaines % (Auto) % Eos % (Auto) % Baso % (Auto) % Neut # (Auto) (1.4-6.5) K/uL Lymph # (Auto) (1.2-3.4) K/uL Gaines # (Auto) (0.11-0.59) K/uL Eos # (Auto) (0-0.5) K/uL Baso # (Auto) (0-0.2) K/uL Immature Gran # (Auto) (0.00-0.02) K/uL APTT (21.0-31.0) Seconds PTT Ratio Sodium (136-145) mmol/L Potassium (3.5-5.1) mmol/L Chloride (98-107) mmol/L Carbon Dioxide (21-32) mmol/L Anion Gap (3-11) BUN (7-18) mg/dl Creatinine (0.6-1.2) mg/dl Est Cr Clr Drug Dosing ml/min Est GFR ( Amer) Est GFR (Non-Af Amer) BUN/Creatinine Ratio (10-20) Glucose (70-99) mg/dl Calcium (8.5-10.1) mg/dl Total Bilirubin (0.2-1) mg/dl AST (15-37) U/L ALT (12-78) U/L Alkaline Phosphatase (45-117) U/L Total Protein (6.4-8.2) gm/dl Albumin (3.4-5.0) gm/dl Globulin (2.5-4.0) gm/dl Albumin/Globulin Ratio (0.9-2) Hepatitis A IgM Ab NON-REACTIVE (NON-REACTIVE) Hep B Core IgM Ab NON-REACTIVE (NON-REACTIVE) Hepatitis C Ab (EIA) NON-REACTIVE (NON-REACTIVE) Hep C Ab Signal/Cutoff 0.00 (<1.00) Medications Administered Current Inpatient Medications Acetaminophen (Acetaminophen 325 Mg Tab) 650 mg PO Q4H PRN PRN Reason: Pain or Fever Stop: 04/20/20 21:16 Al Hydrox/Mg Hydrox/Simethicone (Aluminum/Magnesium Susp 30 Ml Udc) 15 ml PO Q4H PRN PRN Reason: Dyspepsia Stop: 04/20/20 21:16 Cholestyramine Resin (Cholestyramine Light 4 Gm Pkt) 4 gm PO DAILY@2200 [facility] Stop: 04/21/20 21:59 Last Admin: 03/23/20 21:47 Dose: Not Given Documented by: Diphenhydramine HCl (Diphenhydramine Hcl 25 Mg Cap) 25 mg PO Q4H PRN PRN Reason: ITCHINESS Stop: 04/21/20 16:51 Last Admin: 03/24/20 00:59 Dose: 25 mg Documented by: Famotidine (Famotidine 40 Mg Tablet) 40 mg PO HS [facility] Stop: 04/21/20 20:59 Last Admin: 03/23/20 21:47 Dose: 40 mg Documented by: Heparin Sodium/Dextrose (Heparin Sodium/Dextrose) 25,000 units in 500 mls @ 25 mls/hr IV .Q20H [facility]; Protocol Stop: 04/20/20 21:59 Last Titration: 03/24/20 06:57 Dose: 1,250 units/hr, 25 mls/hr Documented by: Lidocaine (Lidocaine 5% 1 Patch) 1 patch TD QAM [facility] Stop: 04/21/20 05:59 Last Admin: 03/24/20 08:34 Dose: Not Given Documented by: Magnesium Hydroxide (Magnesium Hydroxide Susp 30 Ml Udc) 30 ml PO Q12H PRN PRN Reason: Constipation Stop: 04/20/20 21:16 Miscellaneous (Remove Nicoderm Patch) 1 ea N/A DAILY@0859 [facility] Stop: 04/21/20 08:58 Last Admin: 03/24/20 08:35 Dose: 1 ea Documented by: Miscellaneous (Remove Lidoderm Patch) 1 ea N/A HS [facility] Stop: 04/21/20 17:59 Last Admin: 03/23/20 08:38 Dose: Not Given Documented by: Morphine Sulfate (Morphine Sulfate 4 Mg/Ml 1 Ml Carp\Vial) 4 mg IV Q4 PRN PRN Reason: Pain Stop: 04/04/20 23:04 Last Admin: 03/22/20 16:12 Dose: 4 mg Documented by: Morphine Sulfate (Morphine Sulfate 2 Mg/Ml Carp) 2 mg IV Q4H PRN PRN Reason: Pain Stop: 04/06/20 18:15 Last Admin: 03/24/20 00:55 Dose: 2 mg Documented by: Nicotine (Nicotine 21 Mg/24 Hr Tdsy) 21 mg TD QAM [facility] Stop: 04/21/20 00:29 Last Admin: 03/24/20 08:32 Dose: 21 mg Documented by: Ondansetron HCl (Ondansetron Inj 2 Mg/Ml 2 Ml Vial) 4 mg IV Q6H PRN PRN Reason: Nausea Stop: 04/20/20 21:16 Oxycodone HCl (Oxycodone Hcl Ir 5 Mg Tab (Immediate Release)) 5 - 10 mg PO QID PRN PRN Reason: Pain Stop: 04/05/20 04:59 Last Admin: 03/23/20 21:55 Dose: 10 mg Documented by: Pantoprazole Sodium (Pantoprazole 40 Mg Tab) 40 mg PO QAM [facility] Stop: 04/21/20 08:59 Last Admin: 03/23/20 07:41 Dose: 40 mg Documented by: Polyethylene Glycol (Polyethylene (Miralax) 17 Gm Pack) 17 gm PO BID [facility] Stop: 04/22/20 20:59 Last Admin: 03/24/20 08:34 Dose: 17 gm Documented by: Sennosides (Senna 8.6 Mg Tab) 8.6 mg PO BID [facility] Stop: 04/22/20 20:59 Last Admin: 03/24/20 08:34 Dose: 8.6 mg Documented by:
[2020-03-24] MEDS: oxyCODONE HCL IR 5 MG TAB (IMMEDIATE RELEASE) PO PRN ×2 (08:40→18:51)
[2020-03-24] MEDS: HEPARIN SODIUM/DEXTROSE 25,000 UNITS/500 ML BAG IV SCH (11:40)
[2020-03-24] MEDS: PANTOprazole 40 MG TAB PO SCH (11:41)
[2020-03-24] MEDS: CHOLESTYRAMINE LIGHT 4 GM PKT PO SCH (20:50)
[2020-03-24] MEDS: FAMOTIDINE 40 MG TABLET PO SCH (20:56)
[2020-03-24] MEDS: ACETAMINOPHEN 325 MG TAB PO PRN (20:56)
[2020-03-25] MEDS ORDERED: Nursing to Pharmacy Communication SCH (00:30)
[2020-03-25] MEDS: oxyCODONE HCL IR 5 MG TAB (IMMEDIATE RELEASE) PO PRN ×3 (06:32→20:39)
[2020-03-25] MEDS: HEPARIN SODIUM/DEXTROSE 25,000 UNITS/500 ML BAG IV SCH (06:36)
[2020-03-25 06:56] LABS: Hematocrit (blood only) 35.6 % (37-47); Hemoglobin 11.8 g/dL (12.0-16.0); Mean Corpuscular Hemoglobin 29.3 pg (25-34); Mean Corpuscular Hgb Conc 33.1 g/dL (32-36); Mean Corpuscular Volume 88.3 fL (80-100); Mean Platelet Volume 9.8 fL (7.4-10.4); Platelet Count 266 K/uL (130-400); RDW Coefficient of Variation 13.5 % (11.5-14.5); RDW Standard Deviation 43.8 fL (36.4-46.3); Red Blood Count 4.03 M/uL (4.2-5.4); White Blood Count 5.41 K/uL (4.8-10.8)
[2020-03-25 07:16] LABS: Basophils # (auto) 0.02 K/uL (0-0.2); Basophils % (auto) 0.4 %; Eosinophils # (auto) 0.22 K/uL (0-0.5); Eosinophils % (auto) 4.1 %; Immature Granulocytes # (auto) 0.01 K/uL (0.00-0.02); Immature Granulocytes % (auto) 0.2 %; Lymphocytes # (auto) 2.93 K/uL (1.2-3.4); Lymphocytes % (auto) 54.2 %; Monocytes # (auto) 0.48 K/uL (0.11-0.59); Monocytes % (auto) 8.9 %; Neutrophils # (auto) 1.75 K/uL (1.4-6.5); Neutrophils % (auto) 32.2 %
[2020-03-25 07:18] LABS: Partial Thromboplastin Ratio 2.1
[2020-03-25 07:19] LABS: Partial Thromboplastin Time 59.2 Seconds (21.0-31.0)
[2020-03-25 07:31] LABS: Albumin Level 3.2 gm/dl (3.4-5.0); Calcium 9.7 mg/dl (8.5-10.1); Creatinine Clr Calc Pharmacy 106.7 ml/min; Est GFR (African American) 120.6; Potassium 4.2 mmol/L (3.5-5.1)
[2020-03-25 07:34] LABS: Albumin Globulin Ratio 0.9 (0.9-2); Bilirubin,Total 0.3 mg/dl (0.2-1); Globulin 3.5 gm/dl (2.5-4.0); Total Protein 6.7 gm/dl (6.4-8.2)
[2020-03-25] MEDS: POLYETHYLENE (MIRALAX) 17 GM PACK PO SCH ×2 (08:13→20:40)
[2020-03-25] MEDS: SENNA 8.6 MG TAB PO SCH ×2 (08:13→20:40)
[2020-03-25] MEDS: PANTOprazole 40 MG TAB PO SCH (08:13)
[2020-03-25] MEDS: LIDOCAINE 5% 1 PATCH TD SCH (08:13)
[2020-03-25] MEDS: NICOTINE 21 MG/24 HR TDSY TD SCH (08:13)
[2020-03-25] MEDS: MoRPHine SULFATE 2 MG/ML CARP IV PRN (08:17)
--- NOTE | 2020-03-25 13:04 | Electrocardiogram Report ---
Test Reason : Blood Pressure : / mmHG Vent. Rate : 076 BPM Atrial Rate : 076 BPM P-R Int : 162 ms QRS Dur : 084 ms QT Int : 406 ms P-R-T Axes : 048 036 040 degrees QTc Int : 456 ms Normal sinus rhythm with sinus arrhythmia Normal ECG When compared with ECG of 23-MAR-2020 07:09, Nonspecific T wave abnormality no longer evident in Anterior leads Confirmed by Dangelo Dorman ([id number]) on 03/25/2020 1:04:34 PM Referred By: REFERRED SELF Confirmed By:Dangelo Dorman
--- NOTE | 2020-03-25 16:35 | Hospitalist Progress Note ---
Date of Service March 25, 2020 Assessment & Plan (1) Pulmonary embolism and infarction: Presented with right flank pain, elevated d-dimer, CT chest with contrast shows Several segmental and subsegmental pulmonary emboli within the right lower lobe with resultant 4.1 cm right lower lobe pulmonary infarct. Has had gynecological surgery in last week of February but has been reasonably active following that Ultrasound did not show any DVTs in the legs Ordered for hypercoagulable work-up, Started patient on IV heparin weight-based protocol,on admission Patient will need 6-9 months of anticoagulation, can be started on DOAC's ( eliquis ) when liver function improves Echo obtained : Normal LV wall thickness, LV wall motion is normal, EF 60 to 65%, RV normal in size and function, trace TR, Doppler findings do not suggest pulmonary hypertension No arrhythmia on telemetry Pain seems to be reasonably controlled Pulmonary infarct Secondary to pulmonary embolism No pleural effusion Has been getting pain medications Will avoid any NSAID use due to anticoagulation Incidental finding of lung nodule 5 mm right lower lobe nodule. This is likely benign A follow-up chest CT in 6 months to ensure stability is recommended. Tobacco abuse disorder Smokes half a pack per cigarettes a day, counseling provided of risk of blood clot with ongoing smoking Patient is currently not on any oral contraceptive pills (2) Elevated liver enzymes: CT of abdomen pelvis does not show any hepatobiliary abnormality Patient is status post cholecystectomy Monitor comprehensive metabolic panel hepatitis panel-hepatitis A B and C are negative Liver function has been improving (3) Hypokalemia: Replaced, she denies of any nausea vomiting or diarrhea repeat BMP replete and monitor as needed CODE STATUS: Full code DVT prophylaxis: Heparin therapeutic dose Disposition: Expected to be discharged home when medically stable Patient will benefit with hematology follow-up on discharge Admission and Anticipated Discharge Date Admission Date: March 21, 2020 Subjective 03/25/2020 The patient was seen and examined in medical telemetry unit She has been feeling lot better today but still has considerable amount of pain involving the right lateral chest wall with deep breathing, coughing and with ambulation No fever and/or chills Review of Systems Review of Systems: All systems reviewed and are unremarkable except as noted below Respiratory: + cough, + dyspnea on exertion, + pain on inspiration and + pain with cough Physical Exam Physical Exam: Lying in bed comfortably Constitutional: well developed, well nourished and + ill appearing; no acute distress Eyes: PERRL, conjunctivae normal, anicteric sclerae ENMT: external ear and nose normal, oropharynx normal Neck: trachea midline, no thyromegaly Respiratory: normal respiratory effort; no respiratory distress Auscultation: + diminished lung sounds (Right base) and + crackles (Minimal crackles right base) Cardiovascular: Rate/Rhythm: regular rate and regular rhythm Heart Sounds: no murmur Gastrointestinal (Abdomen): Inspection/Auscultation: abdomen normal to inspection and normal bowel sounds Percussion/Palpation: abdomen soft; abdomen nontender Musculoskeletal: No acute arthritis in any joint Neurologic: moves all extremities; no focal motor deficits Psychiatric: A+Ox3, euthymic affect Lymphatic: no cervical or axillary lymphadenopathy Results & Data Results & Data ([facility]) Vital Signs (Past 12 Hours) Vital Signs Temp Pulse Pulse Resp BP Pulse Ox 03/25/20 15:58 80 03/25/20 15:44 36.9 C 95 H 18 102/71 97 03/25/20 11:18 36.7 C 79 18 99/66 L 97 03/25/20 07:22 36.7 C 75 18 97/66 L 97 03/25/20 07:18 56 L Laboratory Results Short CBC 03/25/20 Range/Units 06:19 WBC 5.41 (4.8-10.8) K/uL Hgb 11.8 L (12.0-16.0) g/dL Hct 35.6 L (37-47) % Plt Count 266 (130-400) K/uL BMP 03/25/20 06:19 Sodium 139 Potassium 4.2 Chloride 105 Carbon Dioxide 30 BUN 11 Creatinine 0.79 Glucose 84 Calcium 9.7 Liver Function 03/25/20 Range/Units 06:19 Total Bilirubin 0.3 (0.2-1) mg/dl AST 20 (15-37) U/L ALT 94 H (12-78) U/L Alkaline Phosphatase 134 H (45-117) U/L Albumin 3.2 L (3.4-5.0) gm/dl Medications Administered Current Inpatient Medications Acetaminophen (Acetaminophen 325 Mg Tab) 650 mg PO Q4H PRN PRN Reason: Pain or Fever Stop: 04/20/20 21:16 Last Admin: 03/24/20 20:56 Dose: 650 mg Documented by: Al Hydrox/Mg Hydrox/Simethicone (Aluminum/Magnesium Susp 30 Ml Udc) 15 ml PO Q4H PRN PRN Reason: Dyspepsia Stop: 04/20/20 21:16 Last Admin: 03/24/20 18:57 Dose: 15 ml Documented by: Cholestyramine Resin (Cholestyramine Light 4 Gm Pkt) 4 gm PO DAILY@2200 [facility] Stop: 04/21/20 21:59 Last Admin: 03/24/20 20:50 Dose: Not Given Documented by: Diphenhydramine HCl (Diphenhydramine Hcl 25 Mg Cap) 25 mg PO Q4H PRN PRN Reason: ITCHINESS Stop: 04/21/20 16:51 Last Admin: 03/24/20 00:59 Dose: 25 mg Documented by: Famotidine (Famotidine 40 Mg Tablet) 40 mg PO [facility] Stop: 04/21/20 20:59 Last Admin: 03/24/20 20:56 Dose: 40 mg Documented by: Heparin Sodium/Dextrose (Heparin Sodium/Dextrose) 25,000 units in 500 mls @ 25 mls/hr IV .Q20H [facility]; Protocol Stop: 04/20/20 21:59 Last Titration: 03/25/20 07:30 Dose: 1,250 units/hr, 25 mls/hr Documented by: Lidocaine (Lidocaine 5% 1 Patch) 1 patch TD QAM [facility] Stop: 04/21/20 05:59 Last Admin: 03/25/20 08:13 Dose: Not Given Documented by: Magnesium Hydroxide (Magnesium Hydroxide Susp 30 Ml Udc) 30 ml PO Q12H PRN PRN Reason: Constipation Stop: 04/20/20 21:16 Miscellaneous (Remove Nicoderm Patch) 1 ea N/A DAILY@0859 [facility] Stop: 04/21/20 08:58 Last Admin: 03/25/20 08:14 Dose: 1 ea Documented by: Miscellaneous (Remove Lidoderm Patch) 1 ea N/A [facility] Stop: 04/21/20 17:59 Last Admin: 03/24/20 20:44 Dose: Not Given Documented by: Morphine Sulfate (Morphine Sulfate 4 Mg/Ml 1 Ml Carp\Vial) 4 mg IV Q4 PRN PRN Reason: Pain Stop: 04/04/20 23:04 Last Admin: 03/22/20 16:12 Dose: 4 mg Documented by: Morphine Sulfate (Morphine Sulfate 2 Mg/Ml Carp) 2 mg IV Q4H PRN PRN Reason: Pain Stop: 04/06/20 18:15 Last Admin: 03/25/20 08:17 Dose: 2 mg Documented by: Nicotine (Nicotine 21 Mg/24 Hr Tdsy) 21 mg TD QAM [facility] Stop: 04/21/20 00:29 Last Admin: 03/25/20 08:13 Dose: 21 mg Documented by: Ondansetron HCl (Ondansetron Inj 2 Mg/Ml 2 Ml Vial) 4 mg IV Q6H PRN PRN Reason: Nausea Stop: 04/20/20 21:16 Oxycodone HCl (Oxycodone Hcl Ir 5 Mg Tab (Immediate Release)) 5 - 10 mg PO QID PRN PRN Reason: Pain Stop: 04/05/20 04:59 Last Admin: 03/25/20 14:34 Dose: 10 mg Documented by: Pantoprazole Sodium (Pantoprazole 40 Mg Tab) 40 mg PO QAM [facility] Stop: 04/21/20 08:59 Last Admin: 03/25/20 08:13 Dose: 40 mg Documented by: Polyethylene Glycol (Polyethylene (Miralax) 17 Gm Pack) 17 gm PO BID [facility] Stop: 04/22/20 20:59 Last Admin: 03/25/20 08:13 Dose: 17 gm Documented by: Sennosides (Senna 8.6 Mg Tab) 8.6 mg PO BID [facility] Stop: 04/22/20 20:59 Last Admin: 03/25/20 08:13 Dose: 8.6 mg Documented by:
[2020-03-25] MEDS: FAMOTIDINE 40 MG TABLET PO SCH (20:41)
[2020-03-25] MEDS: CHOLESTYRAMINE LIGHT 4 GM PKT PO SCH (21:20)
[2020-03-25] MEDS: MoRPHine SULFATE 4 MG/ML 1 ML CARP\\VIAL IV PRN (22:06)
[2020-03-26] MEDS: HEPARIN SODIUM/DEXTROSE 25,000 UNITS/500 ML BAG IV SCH (03:04)
[2020-03-26 06:54] LABS: Basophils # (auto) 0.02 K/uL (0-0.2); Basophils % (auto) 0.3 %; Eosinophils # (auto) 0.24 K/uL (0-0.5); Eosinophils % (auto) 4.1 %; Hematocrit (blood only) 35.5 % (37-47); Hemoglobin 11.6 g/dL (12.0-16.0); Immature Granulocytes # (auto) 0.01 K/uL (0.00-0.02); Immature Granulocytes % (auto) 0.2 %; Lymphocytes # (auto) 2.95 K/uL (1.2-3.4); Lymphocytes % (auto) 49.9 %; Mean Corpuscular Hemoglobin 28.9 pg (25-34); Mean Corpuscular Hgb Conc 32.7 g/dL (32-36); Mean Corpuscular Volume 88.5 fL (80-100); Mean Platelet Volume 9.8 fL (7.4-10.4); Monocytes # (auto) 0.57 K/uL (0.11-0.59); Monocytes % (auto) 9.6 %; Neutrophils # (auto) 2.12 K/uL (1.4-6.5); Neutrophils % (auto) 35.9 %; Platelet Count 282 K/uL (130-400); RDW Coefficient of Variation 13.6 % (11.5-14.5); RDW Standard Deviation 44.4 fL (36.4-46.3); Red Blood Count 4.01 M/uL (4.2-5.4); White Blood Count 5.91 K/uL (4.8-10.8)
[2020-03-26 07:23] LABS: Albumin Level 3.2 gm/dl (3.4-5.0); BUN Creatinine Ratio 11.9 (10-20); Calcium 9.4 mg/dl (8.5-10.1); Est GFR (African American) 115.3; Est GFR (Non-African American) 99.5; Potassium 4.1 mmol/L (3.5-5.1)
[2020-03-26 07:26] LABS: Albumin Globulin Ratio 0.9 (0.9-2); Bilirubin,Total 0.2 mg/dl (0.2-1); Globulin 3.4 gm/dl (2.5-4.0); Total Protein 6.6 gm/dl (6.4-8.2)
[2020-03-26 08:12] LABS: Partial Thromboplastin Ratio 2.1
[2020-03-26 08:13] LABS: Partial Thromboplastin Time 59.2 Seconds (21.0-31.0)
[2020-03-26] MEDS: LIDOCAINE 5% 1 PATCH TD SCH (08:29)
[2020-03-26] MEDS: SENNA 8.6 MG TAB PO SCH ×2 (08:30→20:41)
[2020-03-26] MEDS: POLYETHYLENE (MIRALAX) 17 GM PACK PO SCH ×2 (08:30→20:40)
--- NOTE | 2020-03-26 08:30 | XRay Report ---
XR chest 2V PA/lateral CLINICAL HISTORY: Pulmonary Infarct COMPARISON STUDY: Chest CT March 21, 2020. Chest radiograph March 22, 2020. FINDINGS: There are mild bibasilar opacities. Right lower lung opacity likely corresponds to the infa rct shown on CT of March 21, 2020. The appearance of the chest is unchanged. There is no pneumothor ax. No pleural effusion is noted. Pulmonary vascularity is normal. Cardiac size is normal. IMPRESSION: Mild bibasilar opacities. Right lower lung opacity likely corresponds to the pulmonary infarct shown on CT of March 21, 2020. No change in appearance of the chest. ACT 112: Negative or not required by law. Electronically signed by: Malcolm Stanley M.D. 03/26/2020 8:29 AM
[2020-03-26] MEDS: PANTOprazole 40 MG TAB PO SCH (08:31)
[2020-03-26] MEDS: oxyCODONE HCL IR 5 MG TAB (IMMEDIATE RELEASE) PO PRN ×3 (08:32→21:20)
[2020-03-26] MEDS: NICOTINE 21 MG/24 HR TDSY TD SCH (08:34)
--- NOTE | 2020-03-26 15:31 | Hospitalist Progress Note ---
Date of Service March 26, 2020 Assessment & Plan (1) Pulmonary embolism and infarction: Presented with right flank pain, elevated d-dimer, CT chest with contrast shows Several segmental and subsegmental pulmonary emboli within the right lower lobe with resultant 4.1 cm right lower lobe pulmonary infarct. Has had gynecological surgery in last week of February but has been reasonably active following that Ultrasound did not show any DVTs in the legs Ordered for hypercoagulable work-up, Started patient on IV heparin weight-based protocol,on admission Patient will need 6-9 months of anticoagulation, can be started on DOAC's ( eliquis ) when liver function improves Echo obtained : Normal LV wall thickness, LV wall motion is normal, EF 60 to 65%, RV normal in size and function, trace TR, Doppler findings do not suggest pulmonary hypertension No arrhythmia on telemetry Still has some pain with deep breathing and shortness of breath with exertion Will start Eliquis from today and advised more ambulation Pulmonary infarct Secondary to pulmonary embolism No pleural effusion Has been getting pain medications Will avoid any NSAID use due to anticoagulation Repeat chest x-ray did not show any increase in the infarct and/or effusion Incidental finding of lung nodule 5 mm right lower lobe nodule. This is likely benign A follow-up chest CT in 6 months to ensure stability is recommended. Tobacco abuse disorder Smokes half a pack per cigarettes a day, counseling provided of risk of blood clot with ongoing smoking Patient is currently not on any oral contraceptive pills (2) Elevated liver enzymes: CT of abdomen pelvis does not show any hepatobiliary abnormality Patient is status post cholecystectomy Monitor comprehensive metabolic panel hepatitis panel-hepatitis A B and C are negative Liver function has been improving (3) Hypokalemia: Replaced, she denies of any nausea vomiting or diarrhea repeat BMP replete and monitor as needed CODE STATUS: Full code DVT prophylaxis: Heparin therapeutic dose Disposition: Expected to be discharged home when medically stable Patient will benefit with hematology follow-up on discharge Likely home tomorrow Admission and Anticipated Discharge Date Admission Date: March 21, 2020 Subjective 03/25/2020 The patient was seen and examined in medical telemetry unit She has been feeling lot better today but still has considerable amount of pain involving the right lateral chest wall with deep breathing, coughing and with ambulation No fever and/or chills 03/26/2020 The patient was seen and examined in medical telemetry unit She has been complaining of shortness of breath with exertion and one going chest pain with deep breathing No cough and no hemoptysis No fever and no chills Review of Systems Review of Systems: All systems reviewed and are unremarkable except as noted below Respiratory: + cough, + dyspnea on exertion, + pain on inspiration and + pain with cough Cardiovascular: + chest pain (Right lower chest/right flank pain); no palpitations Physical Exam Physical Exam: Lying in bed comfortably Constitutional: well developed, well nourished and + ill appearing; no acute distress Eyes: PERRL, conjunctivae normal, anicteric sclerae ENMT: external ear and nose normal, oropharynx normal Neck: trachea midline, no thyromegaly Respiratory: normal respiratory effort; no respiratory distress Auscultation: + diminished lung sounds (Right base) and + crackles (Minimal crackles right base) Cardiovascular: Rate/Rhythm: regular rate and regular rhythm Heart Sounds: no murmur Gastrointestinal (Abdomen): Inspection/Auscultation: abdomen normal to inspection and normal bowel sounds Percussion/Palpation: abdomen soft; abdomen nontender Musculoskeletal: No acute arthritis in any joint Neurologic: moves all extremities; no focal motor deficits Psychiatric: A+Ox3, euthymic affect Lymphatic: no cervical or axillary lymphadenopathy Results & Data Results & Data ([facility]) Vital Signs (Past 12 Hours) Vital Signs Temp Pulse Resp BP Pulse Ox 03/26/20 11:28 36.8 C 72 18 97/65 L 97 03/26/20 07:30 36.8 C 73 18 96/61 L 97 03/26/20 03:31 36.9 C 88 16 103/70 97 Laboratory Results Short CBC 03/26/20 Range/Units 06:19 WBC 5.91 (4.8-10.8) K/uL Hgb 11.6 L (12.0-16.0) g/dL Hct 35.5 L (37-47) % Plt Count 282 (130-400) K/uL BMP 03/26/20 06:19 Sodium 139 Potassium 4.1 Chloride 106 Carbon Dioxide 29 BUN 10 Creatinine 0.82 Glucose 83 Calcium 9.4 Liver Function 03/26/20 Range/Units 06:19 Total Bilirubin 0.2 (0.2-1) mg/dl AST 17 (15-37) U/L ALT 75 (12-78) U/L Alkaline Phosphatase 130 H (45-117) U/L Albumin 3.2 L (3.4-5.0) gm/dl Medications Administered Current Inpatient Medications Acetaminophen (Acetaminophen 325 Mg Tab) 650 mg PO Q4H PRN PRN Reason: Pain or Fever Stop: 04/20/20 21:16 Last Admin: 03/24/20 20:56 Dose: 650 mg Documented by: Al Hydrox/Mg Hydrox/Simethicone (Aluminum/Magnesium Susp 30 Ml Udc) 15 ml PO Q4H PRN PRN Reason: Dyspepsia Stop: 04/20/20 21:16 Last Admin: 03/24/20 18:57 Dose: 15 ml Documented by: Cholestyramine Resin (Cholestyramine Light 4 Gm Pkt) 4 gm PO DAILY@2200 [facility] Stop: 04/21/20 21:59 Last Admin: 03/25/20 21:20 Dose: Not Given Documented by: Diphenhydramine HCl (Diphenhydramine Hcl 25 Mg Cap) 25 mg PO Q4H PRN PRN Reason: ITCHINESS Stop: 04/21/20 16:51 Last Admin: 03/24/20 00:59 Dose: 25 mg Documented by: Famotidine (Famotidine 40 Mg Tablet) 40 mg PO [facility] Stop: 04/21/20 20:59 Last Admin: 03/25/20 20:41 Dose: 40 mg Documented by: Heparin Sodium/Dextrose (Heparin Sodium/Dextrose) 25,000 units in 500 mls @ 25 mls/hr IV .Q20H [facility]; Protocol Stop: 04/20/20 21:59 Last Titration: 03/26/20 15:11 Dose: 1,250 units/hr, 25 mls/hr Documented by: Lidocaine (Lidocaine 5% 1 Patch) 1 patch TD QAM [facility] Stop: 04/21/20 05:59 Last Admin: 03/26/20 08:29 Dose: Not Given Documented by: Magnesium Hydroxide (Magnesium Hydroxide Susp 30 Ml Udc) 30 ml PO Q12H PRN PRN Reason: Constipation Stop: 04/20/20 21:16 Miscellaneous (Remove Nicoderm Patch) 1 ea N/A DAILY@0859 [facility] Stop: 04/21/20 08:58 Last Admin: 03/26/20 08:35 Dose: 1 ea Documented by: Miscellaneous (Remove Lidoderm Patch) 1 ea N/A [facility] Stop: 04/21/20 17:59 Last Admin: 03/25/20 20:40 Dose: Not Given Documented by: Morphine Sulfate (Morphine Sulfate 4 Mg/Ml 1 Ml Carp\Vial) 4 mg IV Q4 PRN PRN Reason: Pain Stop: 04/04/20 23:04 Last Admin: 03/25/20 22:06 Dose: 4 mg Documented by: Morphine Sulfate (Morphine Sulfate 2 Mg/Ml Carp) 2 mg IV Q4H PRN PRN Reason: Pain Stop: 04/06/20 18:15 Last Admin: 03/25/20 08:17 Dose: 2 mg Documented by: Nicotine (Nicotine 21 Mg/24 Hr Tdsy) 21 mg TD QAM [facility] Stop: 04/21/20 00:29 Last Admin: 03/26/20 08:34 Dose: 21 mg Documented by: Ondansetron HCl (Ondansetron Inj 2 Mg/Ml 2 Ml Vial) 4 mg IV Q6H PRN PRN Reason: Nausea Stop: 04/20/20 21:16 Oxycodone HCl (Oxycodone Hcl Ir 5 Mg Tab (Immediate Release)) 5 - 10 mg PO QID PRN PRN Reason: Pain Stop: 04/05/20 04:59 Last Admin: 03/26/20 12:38 Dose: 10 mg Documented by: Pantoprazole Sodium (Pantoprazole 40 Mg Tab) 40 mg PO QAM [facility] Stop: 04/21/20 08:59 Last Admin: 03/26/20 08:31 Dose: 40 mg Documented by: Polyethylene Glycol (Polyethylene (Miralax) 17 Gm Pack) 17 gm PO BID [facility] Stop: 04/22/20 20:59 Last Admin: 03/26/20 08:30 Dose: Not Given Documented by: Sennosides (Senna 8.6 Mg Tab) 8.6 mg PO BID [facility] Stop: 04/22/20 20:59 Last Admin: 03/26/20 08:30 Dose: Not Given Documented by:
[2020-03-26] MEDS: diphenhydrAMINE Capsule 25 MG CAP PO PRN (15:34)
[2020-03-26] MEDS: ACETAMINOPHEN 325 MG TAB PO PRN (15:57)
[2020-03-26] MEDS: APIXABAN 5 MG TABLET PO SCH (18:08)
[2020-03-26] MEDS: FAMOTIDINE 40 MG TABLET PO SCH (20:41)
[2020-03-26] MEDS: CHOLESTYRAMINE LIGHT 4 GM PKT PO SCH (21:19)
[2020-03-27] MEDS: NICOTINE 21 MG/24 HR TDSY TD SCH (08:10)
[2020-03-27] MEDS: POLYETHYLENE (MIRALAX) 17 GM PACK PO SCH (08:10)
[2020-03-27] MEDS: LIDOCAINE 5% 1 PATCH TD SCH (08:10)
[2020-03-27] MEDS: SENNA 8.6 MG TAB PO SCH (08:11)
[2020-03-27] MEDS: PANTOprazole 40 MG TAB PO SCH (08:12)
[2020-03-27] MEDS: APIXABAN 5 MG TABLET PO SCH (08:12)
[2020-03-27] MEDS: oxyCODONE HCL IR 5 MG TAB (IMMEDIATE RELEASE) PO PRN (12:10)
--- NOTE | 2020-03-27 12:23 | Hospitalist Progress Note ---
Date of Service March 27, 2020 Assessment & Plan (1) Pulmonary embolism and infarction: Presented with right flank pain, elevated d-dimer, CT chest with contrast shows Several segmental and subsegmental pulmonary emboli within the right lower lobe with resultant 4.1 cm right lower lobe pulmonary infarct. Has had gynecological surgery in last week of February but has been reasonably active following that Ultrasound did not show any DVTs in the legs Ordered for hypercoagulable work-up--- still pending, Started patient on IV heparin weight-based protocol,on admission Patient will need 6-9 months of anticoagulation, can be started on DOAC's ( eliquis ) when liver function improves Echo obtained : Normal LV wall thickness, LV wall motion is normal, EF 60 to 65%, RV normal in size and function, trace TR, Doppler findings do not suggest pulmonary hypertension No arrhythmia on telemetry Still has some pain with deep breathing and shortness of breath with exertion Will start Eliquis from today and advised more ambulation Much better almost without any symptoms even with ambulation Will discharge home this afternoon Pulmonary infarct Secondary to pulmonary embolism No pleural effusion Has been getting pain medications Will avoid any NSAID use due to anticoagulation Repeat chest x-ray did not show any increase in the infarct and/or effusion Incidental finding of lung nodule 5 mm right lower lobe nodule. This is likely benign A follow-up chest CT in 6 months to ensure stability is recommended. Tobacco abuse disorder Smokes half a pack per cigarettes a day, counseling provided of risk of blood clot with ongoing smoking Patient is currently not on any oral contraceptive pills (2) Elevated liver enzymes: CT of abdomen pelvis does not show any hepatobiliary abnormality Patient is status post cholecystectomy Monitor comprehensive metabolic panel hepatitis panel-hepatitis A B and C are negative Liver functions have been normalized. Alkaline phos minimally elevated is ex pected (3) Hypokalemia: Replaced, she denies of any nausea vomiting or diarrhea repeat BMP replete and monitor as needed CODE STATUS: Full code DVT prophylaxis: Heparin therapeutic dose Disposition: Expected to be discharged home when medically stable Patient will benefit with hematology follow-up on discharge Discharge home this afternoon on Eliquis Admission and Anticipated Discharge Date Admission Date: March 21, 2020 Subjective 03/25/2020 The patient was seen and examined in medical telemetry unit She has been feeling lot better today but still has considerable amount of pain involving the right lateral chest wall with deep breathing, coughing and with ambulation No fever and/or chills 03/26/2020 The patient was seen and examined in medical telemetry unit She has been complaining of shortness of breath with exertion and one going chest pain with deep breathing No cough and no hemoptysis No fever and no chills 03/27/2020 The patient was seen and examined in medical telemetry unit She has been much better today with less complaint of chest pain with deep breathing She has been ambulating in the hallway without any significant symptoms She will be discharged home this afternoon Review of Systems Review of Systems: All systems reviewed and are unremarkable except as noted below Respiratory: + cough and + pain with cough; no dyspnea on exertion and no pain on inspiration Cardiovascular: + chest pain (Right lower chest/right flank pain-much improved); no palpitations Physical Exam Physical Exam: Lying in bed comfortably Constitutional: well developed, well nourished and + ill appearing; no acute distress Eyes: PERRL, conjunctivae normal, anicteric sclerae ENMT: external ear and nose normal, oropharynx normal Neck: trachea midline, no thyromegaly Respiratory: normal respiratory effort; no respiratory distress Auscultation: lungs clear to auscultation bilaterally; no diminished lung sounds (Right base) and no crackles Cardiovascular: Rate/Rhythm: regular rate and regular rhythm Heart Sounds: no murmur Gastrointestinal (Abdomen): Inspection/Auscultation: abdomen normal to inspection and normal bowel sounds Percussion/Palpation: abdomen soft; abdomen nontender Neurologic: moves all extremities; no focal motor deficits Psychiatric: A+Ox3, euthymic affect Lymphatic: no cervical or axillary lymphadenopathy Results & Data Results & Data ([facility]) Vital Signs (Past 12 Hours) Vital Signs Temp Pulse Pulse Resp BP Pulse Ox 03/27/20 11:37 37.0 C 78 18 113/69 98 03/27/20 07:41 36.9 C 59 L 18 99/63 L 97 03/27/20 07:29 54 L 03/27/20 04:01 36.6 C 56 L 19 97/60 L 97 Medications Administered Current Inpatient Medications Acetaminophen (Acetaminophen 325 Mg Tab) 650 mg PO Q4H PRN PRN Reason: Pain or Fever Stop: 04/20/20 21:16 Last Admin: 03/26/20 15:57 Dose: 650 mg Documented by: Al Hydrox/Mg Hydrox/Simethicone (Aluminum/Magnesium Susp 30 Ml Udc) 15 ml PO Q4H PRN PRN Reason: Dyspepsia Stop: 04/20/20 21:16 Last Admin: 03/24/20 18:57 Dose: 15 ml Documented by: Apixaban (Apixaban 5 Mg Tablet) 10 mg PO BID [facility] Stop: 04/02/20 09:01 Last Admin: 03/27/20 08:12 Dose: 10 mg Documented by: Apixaban (Apixaban 5 Mg Tablet) 5 mg PO BID [facility] Stop: 05/02/20 20:59 Cholestyramine Resin (Cholestyramine Light 4 Gm Pkt) 4 gm PO DAILY@2200 [facility] Stop: 04/21/20 21:59 Last Admin: 03/26/20 21:19 Dose: Not Given Documented by: Diphenhydramine HCl (Diphenhydramine Hcl 25 Mg Cap) 25 mg PO Q4H PRN PRN Reason: ITCHINESS Stop: 04/21/20 16:51 Last Admin: 03/26/20 15:34 Dose: 25 mg Documented by: Famotidine (Famotidine 40 Mg Tablet) 40 mg PO [facility] Stop: 04/21/20 20:59 Last Admin: 03/26/20 20:41 Dose: 40 mg Documented by: Lidocaine (Lidocaine 5% 1 Patch) 1 patch TD QAM [facility] Stop: 04/21/20 05:59 Last Admin: 03/27/20 08:10 Dose: Not Given Documented by: Magnesium Hydroxide (Magnesium Hydroxide Susp 30 Ml Udc) 30 ml PO Q12H PRN PRN Reason: Constipation Stop: 04/20/20 21:16 Miscellaneous (Remove Nicoderm Patch) 1 ea N/A DAILY@0859 [facility] Stop: 04/21/20 08:58 Last Admin: 03/26/20 15:35 Dose: 1 ea Documented by: Miscellaneous (Remove Lidoderm Patch) 1 ea N/A [facility] Stop: 04/21/20 17:59 Last Admin: 03/26/20 20:41 Dose: Not Given Documented by: Morphine Sulfate (Morphine Sulfate 4 Mg/Ml 1 Ml Carp\Vial) 4 mg IV Q4 PRN PRN Reason: Pain Stop: 04/04/20 23:04 Last Admin: 03/25/20 22:06 Dose: 4 mg Documented by: Morphine Sulfate (Morphine Sulfate 2 Mg/Ml Carp) 2 mg IV Q4H PRN PRN Reason: Pain Stop: 04/06/20 18:15 Last Admin: 03/25/20 08:17 Dose: 2 mg Documented by: Nicotine (Nicotine 21 Mg/24 Hr Tdsy) 21 mg TD QAM [facility] Stop: 04/21/20 00:29 Last Admin: 03/27/20 08:10 Dose: Not Given Documented by: Ondansetron HCl (Ondansetron Inj 2 Mg/Ml 2 Ml Vial) 4 mg IV Q6H PRN PRN Reason: Nausea Stop: 04/20/20 21:16 Oxycodone HCl (Oxycodone Hcl Ir 5 Mg Tab (Immediate Release)) 5 - 10 mg PO QID PRN PRN Reason: Pain Stop: 04/05/20 04:59 Last Admin: 03/27/20 12:10 Dose: 10 mg Documented by: Pantoprazole Sodium (Pantoprazole 40 Mg Tab) 40 mg PO QAM [facility] Stop: 04/21/20 08:59 Last Admin: 03/27/20 08:12 Dose: 40 mg Documented by: Polyethylene Glycol (Polyethylene (Miralax) 17 Gm Pack) 17 gm PO BID [facility] Stop: 04/22/20 20:59 Last Admin: 03/27/20 08:10 Dose: Not Given Documented by: Sennosides (Senna 8.6 Mg Tab) 8.6 mg PO BID [facility] Stop: 04/22/20 20:59 Last Admin: 03/27/20 08:11 Dose: Not Given Documented by:
--- NOTE | 2020-03-28 08:16 | Discharge Summary ---
Date of Service March 28, 2020 Admission HPI Per Admitting Provider This is a 25-year-old female with no significant past medical history, presented to ER with complaint of severe sharp pain on her right lower back and right side of the chest, worse with taking deep breath No fever or chills, no cough, no blood in sputum Reports of dyspnea on exertion, pleuritic chest pain Patient denies of any dizzy spell palpitation, CT chest with contrast shows improved segmental and subtle segmental right-sided pulmonary embolism, causing pulmonary infarction Admission Exam Per Admitting Provider Constitutional: WD/WN, vitals as above Eyes: PERRL, conjunctivae normal, anicteric sclerae ENMT: external ear and nose normal, oropharynx normal Neck: trachea midline, no thyromegaly Respiratory: normal respiratory effort, lungs clear to auscultation Cardiovascular: RRR, no murmur, no edema Gastrointestinal (Abdomen): normal bowel sounds, soft, nontender, no hepatosplenomegaly Musculoskeletal: no cyanosis or clubbing, extremities motor strength 5/5 Skin: no rashes, warm and dry Neurologic: PERRL, EOMI, accommodation nl, no face palsy, no dysarthria Psychiatric: A+Ox3, euthymic affect Principal Diagnosis Pulmonary embolism with infarct, elevated liver enzymes-normalized,Incidental 5 mm RLL nodule-needs f/u CT in 6 months Discharge Exam Constitutional well developed, well nourished and + ill appearing; no acute distress Eyes PERRL, conjunctivae normal, anicteric sclerae ENMT external ear and nose normal, oropharynx normal Neck trachea midline, no thyromegaly Respiratory normal respiratory effort; no respiratory distress Auscultation: lungs clear to auscultation bilaterally; no diminished lung sounds (Right base) and no crackles Cardiovascular Rate/Rhythm: regular rate and regular rhythm Heart Sounds: no murmur Gastrointestinal (Abdomen) Inspection/Auscultation: abdomen normal to inspection and normal bowel sounds Percussion/Palpation: abdomen soft; abdomen nontender Neurologic moves all extremities; no focal motor deficits Psychiatric A+Ox3, euthymic affect Lymphatic no cervical or axillary lymphadenopathy Discharge Data Allergies Allergy/AdvReac Type Severity Reaction Status Date / Time No Known Allergies Allergy Verified 03/21/20 21:09 Ordered Studies 03/21/20 18:34 CT abd pelvis wo con Stat 10/10/20 19:21 CT angio chest PE protocol Stat 03/21/20 21:23 US venous doppler [facility] Urgent Hospital Course (1) Pulmonary embolism and infarction: Presented with right flank pain, elevated d-dimer, CT chest with contrast shows Several segmental and subsegmental pulmonary emboli within the right lower lobe with resultant 4.1 cm right lower lobe pulmonary infarct. Has had gynecological surgery in last week of February but has been reasonably active following that Ultrasound did not show any DVTs in the legs Ordered for hypercoagulable work-up--- still pending, Started patient on IV heparin weight-based protocol,on admission Patient will need 6-9 months of anticoagulation, can be started on DOAC's ( eliquis ) when liver function improves Echo obtained : Normal LV wall thickness, LV wall motion is normal, EF 60 to 65%, RV normal in size and function, trace TR, Doppler findings do not suggest pulmonary hypertension No arrhythmia on telemetry Still has some pain with deep breathing and shortness of breath with exertion Will start Eliquis from today and advised more ambulation Much better almost without any symptoms even with ambulation Will discharge home this afternoon Pulmonary infarct Secondary to pulmonary embolism No pleural effusion Has been getting pain medications Will avoid any NSAID use due to anticoagulation Repeat chest x-ray did not show any increase in the infarct and/or effusion Incidental finding of lung nodule 5 mm right lower lobe nodule. This is likely benign A follow-up chest CT in 6 months to ensure stability is recommended. Tobacco abuse disorder Smokes half a pack per cigarettes a day, counseling provided of risk of blood clot with ongoing smoking Patient is currently not on any oral contraceptive pills (2) Elevated liver enzymes: CT of abdomen pelvis does not show any hepatobiliary abnormality Patient is status post cholecystectomy Monitor comprehensive metabolic panel hepatitis panel-hepatitis A B and C are negative Liver functions have been normalized. Alkaline phos minimally elevated is expected (3) Hypokalemia: Replaced, she denies of any nausea vomiting or diarrhea repeat BMP replete and monitor as needed CODE STATUS: Full code DVT prophylaxis: Heparin therapeutic dose Disposition: Expected to be discharged home when medically stable Patient will benefit with hematology follow-up on discharge Discharge home this afternoon on Eliquis Total Time Total Time Spent Total Time Spent (In Minutes): 35 minutes Total Time Includes: Examination of the Patient, Discharge Planning, Medication Reconciliation and Communication With Other Providers Discharge Plan Discharge Items Patient Disposition: Home - Self-Care Reason For Visit: CHEST PAIN/ SHORTNESS OF BREATH Discharge Diagnosis: Pulmonary embolism with infarct, elevated liver enzymes-normalized Condition on Discharge: Fair Activity: Resume your previous activity Non-emergency contact: Primary Care Provider Call non-emergency contact if: your symptoms worsen Follow-up/Referrals: Will Mckeon MD [Primary Care Provider] - (Date & Time 03/31/2020 11:00 AM Provider Will Mckeon III, MD Department [facility] ) Diet: Regular Addtl Attending Provider Instructions: Please take Eliquis regularly Avoid any strenuous exercise Do not take any NSAID's and or aspirin ising hematology office will call you with an appointment Pending Studies at Discharge: Yes Studies:: Hypercoagulable work-up Stand-Alone Forms: [facility], Smoking Cessation Medications and DC Order Prescriptions: New nicotine [Nicoderm CQ] 21 mg/24 hr Patch 24 Hour 21 mg transdermal QAM 30 Days Qty: 30 RF: 0 Eliquis 5 mg Tablet 10 mg PO BID 5 Days Qty: 20 RF: 0 Eliquis 5 mg Tablet 5 mg PO BID 30 Days Qty: 60 RF: 0 lidocaine 5 % Adhesive Patch,Medicated 1 patch transdermal QAM 10 Days Qty: 10 RF: 0 Continued famotidine 40 mg Tablet 40 mg PO HS RF: 0 omeprazole 40 mg Capsule,Delayed Release(Dr/Ec) 40 mg PO QAM RF: 0 Cholestyramine Light 4 gram Powder 4 g PO QPM RF: 0 acetaminophen-codeine 300-30 mg Tablet 1 tab PO UD PRN (Reason: Pain) RF: 0 Discontinued ibuprofen 600 mg tablet 600 mg PO TID PRN (Reason: Pain) RF: 0 Discharge Orders: Discharge Order (Routine); Ordered 03/27/20 Ordered By: Lukas Briceno Admission Data Admit Date/Time: 03/21/20 21:18 Attending Provider: Lukas Briceno Admit Provider: Elina Blevins Primary Care Provider: Will Mckeon Other Providers: Elina Blevins ; Harry Ivey
[2020-03-29 00:40] LABS: Anti Cardiolipin Ab IgG <14 GPL; Anti Cardiolipin Ab IgM 19 MPL; Anti-Thrombin III Activity 97 % normal (80-135); B2 Glycoprotein IgG <9 SGU (<=20); B2 Glycoprotein IgM <9 SMU (<=20); PTT LA Screen 37 sec (<=40); Protein S Functional(Activity) 66 % (60-140)
[2020-04-02] MEDS ORDERED: APIXABAN 5 MG TABLET PO SCH (21:00)
== END 2020-03-27 14:52 | disposition home or self-care (01) | DRG 176 ==
LOC: ED 18:04 → 2N 21:18 → SUATTDRO 21:18 → 2N 22:25